=== PATIENT | female | born 1940 | race Caucasian/White ===

== ENCOUNTER 2017-06-21 14:57 | Inpatient (IN) | payer OTHER, MEDICARE ==
[~2017-06-21] VITALS: Ht 160 cm; Wt 87.7 kg
[~2017-06-21 14:57] MED LIST: ASPCH81X PO; CARV25TA2 PO; CHOL1000 PO; FRS/40 PO; GLIM2TAB2 PO; LEVO50TA60 PO; LISI10TA PO; MCRK20 PO; METF-384 PO; METH2.5T PO; MULT-506 PO; NATE60TA PO; NTRGSL/4 UT; OXGN; PRAV40TA2 PO; SITA100T3 PO; TERA5CAP PO; ZNTT/150 PO
--- NOTE | 2017-06-21 15:49 | EMERGENCY ROOM VISIT NOTE ---
History Report prepared by Zurdo: Sabrina Lal Under the Supervision of: Dr. Freya Lopez D.O. First contact with patient: 15:30 Chief Complaint: CARDIAC ASSESSMENT Stated Complaint: NARROWING HEART VALVE, WEAKNESS, SOB Nursing Triage Summary: Pt c/o SOB and "after I can get my breath my upper body just don't feel right and I do know I have a narrowing of a vein or valve in the heart" Pt denies chest pain. Symptoms began approx 1 hour ago. History of Present Illness The patient is a 76 year old female who presents to the Emergency Room with complaints of shortness of breath beginning 1 month ago. She reports that she has also had weakness and fatigue for 1 month. She states that exertion exacerbates her pain. States she feels better at rest. Today she reports that after going to the [employer] she was out of breath by the time she got home, and then broke out in a cold sweat. She states she tried to rest, but the symptoms persisted which was unusual. She also reports being nauseous and having a fleeting headache, and that she felt tingly from her waist up. The patient reports that she had her aortic valve replaced and that she has a narrowing in her aorta. She denies a history of heart attacks and asthmatic problems, but does state that she was a smoker. The patient reports that there was calcium in her lungs that was biopsied and is benign. The patient takes baby aspirin, and denies recent changes in medications. Pt denies change in vision, chest pain, vomiting, diarrhea, pain with urination, and melena. The patient's geophysical support specialist is Dr. Díaz. Source of History: patient Onset: 1 month ago Position: other (global) Quality: other (shortness of breath ) Modifying Factors (Worsening): exertion Associated Symptoms: + headache, + nausea, No vomiting, No melena, No urinary symptoms Note: additional symptom: tingly from waist up Review of Systems See HPI for pertinent positives & negatives. A total of 10 systems reviewed and were otherwise negative. Past Medical & Surgical Medical Problems: (1) Atrial fibrillation (2) Benign hypertension (3) CHF (4) Coronary artery disease (5) Diabetes mellitus (6) Hyperlipidemia (7) Hypothyroidism (8) Rheumatoid arthritis (9) Unstable angina Surgical Problems: (1) Cardiac catheterization (2) History of cholecystectomy (3) Replacement of aortic valve (4) Replacement of total knee joint (5) Total replacement of hip Family History Cancer Diabetes mellitus Heart disease Social History Smoking Status: Former Smoker Alcohol Use: none Drug Use: none Marital Status: single Housing Status: lives alone Occupation Status: employed Current/Historical Medications Scheduled Aspirin (Aspirin Ec), 81 MG PO DAILY Carvedilol (Carvedilol), 25 MG PO BID Cholecalciferol (Vitamin D3), 1,000 INTER.UNIT PO DAILY Folic Acid (Folic Acid), 1 MG PO DAILY Furosemide (Furosemide), 40 MG PO QAM Glimepiride (Glimepiride), 2 MG PO QPM Glimepiride (Glimepiride), 4 MG PO QAM Levothyroxine Sodium (Levothyroxine Sodium), 50 MCG PO QAM Lisinopril (Lisinopril), 10 MG PO QAM Metformin HCl (Metformin HCl), 850 MG PO BID Methotrexate (Methotrexate), 15 MG PO WK Multivitamin (Multivitamin), 1 TAB PO DAILY Nateglinide (Starlix), 120 MG PO QAM Nateglinide (Starlix), 60 MG PO QPM Potassium Chloride (Potassium Chloride Er), 10 MEQ PO DAILY Pravastatin Sodium (Pravastatin Sodium), 40 MG PO HS Ranitidine HCl (Ranitidine HCl), 150 MG PO BID Sitagliptin (Januvia), 100 MG PO QAM Terazosin (Hytrin), 5 MG PO HS Scheduled PRN Nitroglycerin (Nitrostat), 0.4 MG UT UD PRN for Chest Pain Allergies Coded Allergies: Codeine (Verified Allergy, Severe, CHEST PAIN, SOB- HAD INTRASPINAL MORPHINE [id number] ADMISSIO, 11/18/15) Chlorhexidine (Verified Allergy, Unknown, unk, 11/18/15) Physical Exam Vital Signs Date Time Temp Pulse Resp B/P (MAP) Pulse Ox O2 Delivery O2 Flow Rate FiO2 06/21/17 17:45 87 23 94 06/21/17 17:40 92 22 96 06/21/17 17:40 71 06/21/17 17:32 162/80 06/21/17 17:10 86 21 93 06/21/17 17:06 121/73 06/21/17 16:40 89 30 06/21/17 16:05 70 20 94 06/21/17 16:00 133/72 06/21/17 15:57 87 22 95 06/21/17 15:33 82 20 120/69 95 Room Air 06/21/17 15:30 120/69 06/21/17 15:30 83 06/21/17 15:28 128/76 06/21/17 15:03 96 Room Air 06/21/17 15:00 36.8 92 20 137/79 96 Room Air Physical Exam GENERAL: alert, well appearing, well nourished, no distress, non-toxic EYE EXAM: normal conjunctiva, PERRL and EOM's grossly intact OROPHARYNX: no exudate, no erythema, lips, buccal mucosa, and tongue normal and mucous membranes are moist NECK: supple, no nuchal rigidity, no adenopathy, non-tender LUNGS: Normal chest wall mechanics. Decreased breath sounds bilaterally. No wheezes, rhonchi, or rales. HEART: no murmurs, S1 normal and S2 normal ABDOMEN: abdomen soft, non-tender, normo-active bowel sounds, no masses, no rebound or guarding. BACK: Back is symmetrical on inspection and there is no deformity, no midline tenderness, no CVA tenderness. SKIN: no rashes and no bruising UPPER EXTREMITIES: upper extremities are grossly normal. LOWER EXTREMITIES: No pitting edema. NEURO EXAM: Normal sensorium, cranial nerves II-XII [grossly] intact, normal speech, no [gross] weakness of arms, no [gross] weakness of legs. [No drift. Finger to nose intact. Gross sensation intact.] Medical Decision & Procedures ER Provider Diagnostic Interpretation: Radiology results have been interpreted by the radiologist and reviewed by me. CHEST ONE VIEW PORTABLE CLINICAL HISTORY: Shortness of breath. Chest pain. COMPARISON STUDY: Chest radiograph November 18, 2015. FINDINGS: There is no pneumothorax or pleural effusion. Study is mildly compromised by suboptimal penetration. There is pulmonary vascular congestion with possible mild pulmonary edema. Moderate cardiomegaly is noted. A 4.2 cm right lower lobe mass is unchanged from earlier studies. Additional lower lobe nodules are unchanged. These were shown to represent partially calcified nodules and masses on CT of August 05, 2013. Prosthetic aortic valve is noted. IMPRESSION: 1. Pulmonary vascular congestion with suspected mild edema. 2. Moderate cardiomegaly. 3. No change in bilateral lower lung masses and nodules from study of October 02, 2010. These are likely benign. Electronically signed by: Ruben Holt M.D. 06/21/2017 4:06 PM Dictated Date/Time: 06/21/2017 4:03 PM Laboratory Results Test 06/21/17 15:24 Immature Granulocyte % (Auto) 0.4 % White Blood Count 8.20 K/uL (4.8-10.8) Red Blood Count 4.11 M/uL (4.2-5.4) Hemoglobin 11.9 g/dL (12.0-16.0) Hematocrit 35.4 % (37-47) Mean Corpuscular Volume 86.1 fL (80-100) Mean Corpuscular Hemoglobin 29.0 pg (25-34) Mean Corpuscular Hemoglobin Concent 33.6 g/dl (32-36) Platelet Count 138 K/uL (130-400) Mean Platelet Volume 10.8 fL (7.4-10.4) Neutrophils (%) (Auto) 82.9 % Lymphocytes (%) (Auto) 10.4 % Monocytes (%) (Auto) 5.2 % Eosinophils (%) (Auto) 1.0 % Basophils (%) (Auto) 0.1 % Neutrophils # (Auto) 6.80 K/uL (1.4-6.5) Lymphocytes # (Auto) 0.85 K/uL (1.2-3.4) Monocytes # (Auto) 0.43 K/uL (0.11-0.59) Eosinophils # (Auto) 0.08 K/uL (0-0.5) Basophils # (Auto) 0.01 K/uL (0-0.2) Immature Granulocyte # (Auto) 0.03 K/uL (0.00-0.02) Prothrombin Time 10.4 SECONDS (9.0-12.0) Prothromb Time International Ratio 1.0 (0.9-1.1) Total Bilirubin 0.4 mg/dl (0.2-1) Aspartate Amino Transf (AST/SGOT) 20 U/L (15-37) Alanine Aminotransferase (ALT/SGPT) 31 U/L (12-78) Alkaline Phosphatase 81 U/L (45-117) Pro-B-Type Natriuretic Peptide 62058 pg/ml (0-900) Total Protein 7.2 gm/dl (6.4-8.2) Albumin 3.7 gm/dl (3.4-5.0) Globulin 3.5 gm/dl (2.5-4.0) Albumin/Globulin Ratio 1.1 (0.9-2) Laboratory results per my review. Test 06/21/17 15:24 Immature Granulocyte % (Auto) 0.4 % White Blood Count 8.20 K/uL (4.8-10.8) Red Blood Count 4.11 M/uL (4.2-5.4) Hemoglobin 11.9 g/dL (12.0-16.0) Hematocrit 35.4 % (37-47) Mean Corpuscular Volume 86.1 fL (80-100) Mean Corpuscular Hemoglobin 29.0 pg (25-34) Mean Corpuscular Hemoglobin Concent 33.6 g/dl (32-36) Platelet Count 138 K/uL (130-400) Mean Platelet Volume 10.8 fL (7.4-10.4) Neutrophils (%) (Auto) 82.9 % Lymphocytes (%) (Auto) 10.4 % Monocytes (%) (Auto) 5.2 % Eosinophils (%) (Auto) 1.0 % Basophils (%) (Auto) 0.1 % Neutrophils # (Auto) 6.80 K/uL (1.4-6.5) Lymphocytes # (Auto) 0.85 K/uL (1.2-3.4) Monocytes # (Auto) 0.43 K/uL (0.11-0.59) Eosinophils # (Auto) 0.08 K/uL (0-0.5) Basophils # (Auto) 0.01 K/uL (0-0.2) Immature Granulocyte # (Auto) 0.03 K/uL (0.00-0.02) Prothrombin Time 10.4 SECONDS (9.0-12.0) Prothromb Time International Ratio 1.0 (0.9-1.1) Total Bilirubin 0.4 mg/dl (0.2-1) Aspartate Amino Transf (AST/SGOT) 20 U/L (15-37) Alanine Aminotransferase (ALT/SGPT) 31 U/L (12-78) Alkaline Phosphatase 81 U/L (45-117) Pro-B-Type Natriuretic Peptide 53656 pg/ml (0-900) Total Protein 7.2 gm/dl (6.4-8.2) Albumin 3.7 gm/dl (3.4-5.0) Globulin 3.5 gm/dl (2.5-4.0) Albumin/Globulin Ratio 1.1 (0.9-2) Medications Administered Medications (Trade) Dose Ordered Sig/Taya Route Start Time Stop Time Status Last Admin Dose Admin Aspirin/Aluminum/ Magnesium/Ca Carb (Ascriptin Tab) 325 mg NOW STAT PO 06/21/17 16:43 06/21/17 16:44 DC 06/21/17 17:06 325 MG Heparin Sodium/ Dextrose 500 ml @ 24 mls/hr [id number] PRN IV 06/21/17 17:45 07/21/17 17:44 06/23/17 10:24 24 MLS/HR Heparin Sodium (Porcine) (Heparin Iv Bolus) 5,000 unit NOW ONCE IV 06/21/17 17:38 06/21/17 17:39 DC 06/21/17 17:41 5,000 UNIT ECG Indication: SOB/dyspnea Rate (beats per minute): 89 Rhythm: sinus rhythm Findings: ST depression (in lead I, aVL, V4, V5, V6), other (normal axis and intervals) ED Course 1534: The patient was evaluated in room B3B. A complete history and physical exam was performed. 1643: Ordered Ascriptin Tab 325 mg PO. 1700: I updated the patient. 1714: Ordered Heparin Sodium/Dextrose 1 ea. 1715: Upon reevaluation, the patient is resting. I discussed the findings and the treatment plan with the patient. She expresses agreement and understanding. I spoke with Sue Coates PA-C of the [facility]. She will be evaluated for further management. 1716: I discussed the patient's case with Dr. Stone, He states no additional orders at this time. 1717: Dr. Mei is seeing the patient at bedside. Medical Decision Differential diagnosis: Etiologies such as infections, reactive airway disease, pneumonia, pneumothorax , COPD, CHF, cardiac ischemia, pulmonary embolism, musculoskeletal, gastrointestinal, as well as others were entertained. Pt with concerning story for angina, now becoming unstable. No ST elevation, + troponin. Doubt related to infection or renal dysfunction, possibly related to CHF. Pt started on heparin given elevated trop and concerning story. BNP elevated, pulmonary edema noted on CXR, no overt SOB or hypoxia, no LE edema. No sx while at rest in the ER, VS stable throughout. Doubt dissection, tamponade, effusion, bacteremia/sepsis, perf, mesenteric ischemia, pneumothorax. Medication Reconcilliation Current Medication List: was personally reviewed by me Blood Pressure Screening Patient's blood pressure: Elevated blood pressure Blood pressure disposition: Elevated BP felt to be situational Consults Time Called: 1700 Consulting Physician: Sue Fuller Returned Call: 1715 I reviewed the patient's case with Sue Coates PA-C. She will evaluate the patient for further management. Additional Consults: Time Called: 1700 Consulted Physician: Dr. Stone-Cardiology Returned Call: 1715 Additional Comments: I discussed the patient's case with Dr. Gibson, He states no additional orders at this time. Impression Primary Impression: Non-ST elevation (NSTEMI) myocardial infarction Additional Impressions: Pulmonary edema Renal insufficiency Critical Care I have personally spent greater than 35 minutes of critical care time in the direct management of this patient. This includes bedside care, interpretation of diagnostic studies, and testing, discussion with consultants, patient, and family members, and other required patient management activities. This 35 minutes is in excess of all separately billable procedures. Scribe Attestation The scribe's documentation has been prepared under my direction and personally reviewed by me in its entirety. I confirm that the note above accurately reflects all work, treatment, procedures, and medical decision making performed by me. Departure Information Dispostion Being Evaluated By Hospitalist Juan Manuel Curry M.D. (PCP) Patient Instructions My [facility] Problem Qualifiers Additional Impressions: Pulmonary edema Chronicity: acute Qualified Codes: J81.0 - Acute pulmonary edema
[2017-06-21 16:05] LABS: PROTHROMBIN TIME (PATIENT) 10.4 SECONDS (9.0-12.0)
[2017-06-21] MEDS ORDERED: CRG25 PO (16:07)
[2017-06-21] MEDS ORDERED: FLV1 PO (16:07)
[2017-06-21] MEDS ORDERED: ASPI81TA28 PO (16:07)
[2017-06-21] MEDS ORDERED: LISI-461 PO (16:07)
[2017-06-21] MEDS ORDERED: LEVO50TA6 PO (16:07)
[2017-06-21] MEDS ORDERED: SITA1TAB27 PO (16:07)
[2017-06-21] MEDS ORDERED: RANI150T2 PO (16:07)
[2017-06-21] MEDS ORDERED: GLC850 PO (16:07)
[2017-06-21] MEDS ORDERED: AMR2 PO (16:07)
[2017-06-21] MEDS ORDERED: LSX40 PO (16:07)
[2017-06-21] MEDS ORDERED: POTA-74 PO (16:07)
[2017-06-21] MEDS ORDERED: NATE1TAB PO ×2 (16:07)
[2017-06-21] MEDS ORDERED: MTH25 PO (16:07)
--- NOTE | 2017-06-21 16:07 | DIAGNOSTIC IMAGING REPORT ---
CHEST ONE VIEW PORTABLE CLINICAL HISTORY: Shortness of breath. Chest pain. COMPARISON STUDY: Chest radiograph November 18, 2015. FINDINGS: There is no pneumothorax or pleural effusion. Study is mildly compromised by suboptimal penetration. There is pulmonary vascular congestion with possible mild pulmonary edema. Moderate cardiomegaly is noted. A 4.2 cm right lower lobe mass is unchanged from earlier studies. Additional lower lobe nodules are unchanged. These were shown to represent partially calcified nodules and masses on CT of August 05, 2013. Prosthetic aortic valve is noted. IMPRESSION: 1. Pulmonary vascular congestion with suspected mild edema. 2. Moderate cardiomegaly. 3. No change in bilateral lower lung masses and nodules from study of October 02, 2010. These are likely benign. Electronically signed by: Ruben Holt M.D. 06/21/2017 4:06 PM Dictated Date/Time: 06/21/2017 4:03 PM
[2017-06-21 16:09] LABS: BASO % 0.1 %; BASO ABS # 0.01 K/uL (0-0.2); COMPLETE YES; HEMATOCRIT 35.4 % (37-47); IG% 0.4 %; LYMPH % 10.4 %; LYMPH ABS # 0.85 K/uL (1.2-3.4); MEAN CELL VOLUME 86.1 fL (80-100); MEAN CORPUSCULAR HGB CONC 33.6 g/dl (32-36); MEAN PLATELET VOLUME 10.8 fL (7.4-10.4); MONO % 5.2 %; NEUT % 82.9 %; PLATELET COUNT 138 K/uL (130-400); RED BLOOD COUNT 4.11 M/uL (4.2-5.4)
[2017-06-21 16:14] LABS: BUN/CREATININE RATIO 20.4 (10-20); CALCIUM 9.2 mg/dl (8.5-10.1); CREATININE 1.3 mg/dl (0.60-1.20); MAGNESIUM 1.9 mg/dl (1.8-2.4); POTASSIUM 4.9 mmol/L (3.5-5.1)
[2017-06-21 16:32] LABS: ALB/GLOB RATIO 1.1 (0.9-2)
[2017-06-21] MEDS ORDERED: ASPIRIN/ALUM/MAGNES/CAL CARB 325 MG TAB PO STA (16:43)
[2017-06-21] MEDS ORDERED: HEPARIN 25000 UNIT/500 ML D5W ONE (17:27)
[2017-06-21] MEDS ORDERED: HEPARIN SOD 5000 UNIT/0.5 ML CARP ONE (17:27)
[2017-06-21] MEDS ORDERED: HEPARIN SOD (PORCINE) 1000 UNIT/ML 10 ML VIAL IV ONE (17:38)
[2017-06-21] MEDS: HEPARIN 25,000 UNIT/500ML D5W 500 ML IV PRN (17:42)
[2017-06-21] MEDS ORDERED: NSS + 20MEQ KCL 1000ML 1,000 ML IV SCH (17:44)
[2017-06-21] MEDS ORDERED: ONDANSETRON INJ 2 MG/ML 2 ML VIAL IV PRN (17:45)
[2017-06-21] MEDS ORDERED: NITROGLYCERIN 0.4 MG SL PER TAB CHARGE SL PRN (17:45)
[2017-06-21] MEDS ORDERED: ACETAMINOPHEN 325 MG TAB PO PRN (17:45)
[2017-06-21] MEDS ORDERED: NITROGLYCERIN 0.4 MG SL PER TAB CHARGE UT PRN (18:00)
[2017-06-21] MEDS ORDERED: GLUCOSE 10 TABS/TUBE PO PRN (18:45)
[2017-06-21] MEDS ORDERED: GLUCAGON FOR INJ 1 MG VIAL SQ PRN (18:45)
[2017-06-21] MEDS ORDERED: GLUCOSE 40% GEL 15 GM TUBE PO PRN (18:45)
[2017-06-21] MEDS ORDERED: DEXTROSE 50% 50 ML SYR IV PRN (18:45)
[2017-06-21] MEDS ORDERED: FUROSEMIDE INJ 60 MG in SYRINGE 0 ML IV STA (19:13)
--- NOTE | 2017-06-21 19:59 | HISTORY & PHYSICAL EXAMINATION ---
DATE OF ADMISSION: 06/21/2017 PRIMARY CARE PHYSICIAN: Dr. Sweet. CHIEF COMPLAINT: Shortness of breath on exertion for 1 month, more shortness of breath and sweating and feeling unwell since this afternoon. HISTORY OF PRESENT COMPLAINT: She is a 76-year-old female with significant past medical history including atrial fibrillation, type 2 diabetes, heart failure due to valvular heart disease, rheumatoid arthritis, status post TAVR, apparently complaining of shortness of breath on exertion for about 1 month. She went to [facility] today and has had some physical exertion. Following that, she started to have more shortness of breath with chest tightness and sweating and also feeling of fainting or very unwell. From that point, she went home, the condition did not improve, then she was brought into the Emergency Room for further evaluation. She denies to have any chest pain, but she complained to have chest tightness. She did not have any numbness or tingling involving the left upper extremity or jaw or neck. In the ER, she did receive nitro and she was feeling a bit better following administration of oxygen as well. She denies to have any recent fever, any chills or rigors. She does not have any abdominal pain, any nausea or vomiting. She does not have any problem with urine and/or bowel habit. She does not have any fever, any cough or any phlegm. She denies to have any headache, any blurred vision, any numbness or tingling in the extremities or any weakness involving any side of the body. In the Emergency Room, she was hemodynamically stable, her pain was to some extent relieved, the investigation including EKG did show ST depression >1mm involving I and aVL and also V4, V5 and V6 and her troponin was 0.1. From that point, she was started on IV heparin and she was admitted to telemetry unit for continuation of care. 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 PAST SURGICAL HISTORY: Significant for aortic valve replacement with a CABG with prosthetic valve, arthroplasty of the left knee; carpal tunnel surgery, both sides; partial hip replacement of the right side, cholecystectomy and transthoracic aortic valve replacement in 2013. FAMILY HISTORY: Mother had carcinoma of the ovary, father from a motor vehicle accident and sister has diabetes type 1. SOCIAL HISTORY: She is a . She lives alone. She quit smoking years ago. She does not drink any alcohol and she has been reasonably ambulant. ALLERGIES: ALLERGIC TO CHLORHEXIDINE AND CODEINE. MEDICATIONS: As an outpatient, she has been on furosemide 40 mg daily, metformin 850 mg twice daily, Januvia 100 mg p.o. q.a.m., Starlix 60 mg at night and Starlix 120 mg in the morning, aspirin 81 mg daily, carvedilol 25 mg twice daily, vitamin D3 1000 units daily, folic acid 1 mg daily, glimepiride 2 mg q.p.m. and 4 mg q.a.m., levothyroxine 50 mcg daily, lisinopril 10 mg daily, methotrexate 15 mg every Fridays, multivitamin 1 tablet daily, nitroglycerin 0.4 mg as directed, potassium 10 mEq daily, pravastatin 40 mg daily, ranitidine 150 mg twice daily and terazosin 5 mg at night. REVIEW OF SYSTEMS: All other systems reviewed are unremarkable except those mentioned in history of present complaint. PHYSICAL EXAMINATION: GENERAL: On examination in the Emergency Room, she was not having any acute pain or shortness of breath. VITAL SIGNS: Temperature 36.8, pulse was 70, blood pressure 133/72, saturation 94% on room air. HEENT: Unremarkable. NECK: Supple. No JVD, no bruit. CHEST: Decreased breath sounds at bases but no wheezing and/or crackles. HEART: S1, S2 regular, prosthetic valve sounds, questionable murmur 2/6 over precordium. ABDOMEN: Soft, benign, nontender, no organomegaly. Bowel sounds present. EXTREMITIES: Trace edema on the left. Otherwise, unremarkable. MUSCULOSKELETAL: Did not show any acute arthritis involving any joint. CENTRAL NERVOUS SYSTEM: She was alert, awake, oriented x3 and no focal sensory and/or motor deficit appreciated. LABORATORY DATA: Noted today - white count 8.20, H&H 11.9/35.4, platelet was 138. Sodium 141, potassium 4.9, chloride 107, carbon dioxide 27, BUN 27, creatinine 1.30, random glucose 182. Troponin 1.113. Liver function is unremarkable. ProBNP is pending. INR 1.0. IMAGING DATA: Chest x-ray: Pulmonary vascular congestion with suspected mild edema. Moderate cardiomegaly. No change in bilateral lower lung masses in review from the study of September 2010, they are likely benign. EKG was in sinus rhythm, rate of 89 per minute, normal axis with ST depression and T-wave inversion involving I, aVL and V4 through V6 and ST depression was more than 1 mm, new compared with EKG of October 2015. IMPRESSION AND PLAN: 1. Unstable angina. The patient was admitted with shortness of breath and sweating with electrocardiogram changes and elevation troponin. She will be admitted to telemetry unit. Serial cardiac enzymes. She was started with intravenous heparin. Other medications will be continued. She got aspirin as well. She seems to be free of pain at this time. 2. Diabetes type 2. She has been on multiple oral medications. We will hold metformin and Januvia and Starlix for now. Put her on sliding scale coverage while in the hospital. 3.History of atrial fibrillation and status post transcatheter aortic valve replacement.Has significant Aortic Stenosis.Heart rate seems to be regular rhythm at this time. Continue with her current beta radha that is carvedilol. No acute issue at this time. 4. History of systolic heart failure complicated by valvular heart disease. She has been on furosemide.CXR is suggestive of Mild CHF,will give 60mg furosemide IV now and continue 40mg from AM. 5. Hypertension. Blood pressure is well controlled at this time. 6. Hypothyroidism. Continue current medication. 7. Hypothyroidism. Continue replacement. 8. Gastrointestinal prophylaxis with proton pump inhibitor and ranitidine. 9. Deep vein thrombosis prophylaxis, will be put on heparin drip. 10. Code status: She will be a full code. In my clinical assessment, the beneficiary meets criteria as per CMS for 2-midnight stay in the hospital. RODRIGUEZ
[2017-06-21] MEDS: INSULIN ASPART 100 UNITS/ML 3 ML PEN SC SCH (21:00)
[2017-06-21] MEDS: GLIMEPIRIDE 2 MG TAB PO SCH (21:21)
[2017-06-21] MEDS: CARVEDILOL 25 MG TAB PO SCH (21:21)
[2017-06-21] MEDS: RANITIDINE HCL 150 MG TAB PO SCH (21:21)
[2017-06-21] MEDS: PRAVASTATIN SOD 40 MG TAB PO SCH (21:22)
[2017-06-21 22:28] VITALS: BP 124/56; PULSE 89; TEMP 36.4; O2SAT 95; Ht 160 cm; Wt 87.7 kg
[2017-06-21 23:39] VITALS: BP 105/69; PULSE 79; TEMP 36.8; O2SAT 94
[2017-06-22] VITALS (7 sets, daily range): BP systolic 92–120; BP diastolic 53–66; PULSE 65–88; TEMP 36.4–37; O2SAT 92–96
[2017-06-22 00:29] LABS: CKMB/CK RATIO 2.7 (0-3.0)
[2017-06-22 05:56] LABS: HEMATOCRIT 34.1 % (37-47); MEAN CELL VOLUME 87.4 fL (80-100); MEAN CORPUSCULAR HEMOGLOBIN 28.2 pg (25-34); MEAN CORPUSCULAR HGB CONC 32.3 g/dl (32-36); MEAN PLATELET VOLUME 10.3 fL (7.4-10.4); PLATELET COUNT 136 K/uL (130-400); WHITE BLOOD COUNT 6.83 K/uL (4.8-10.8)
[2017-06-22 06:22] LABS: PARTIAL THROMBOPLASTIN RATIO 1.9
[2017-06-22] MEDS: LEVOTHYROXINE 50 MCG TAB PO SCH (06:27)
[2017-06-22 06:50] LABS: BUN/CREATININE RATIO 24.7 (10-20); CALCIUM 8.6 mg/dl (8.5-10.1); CREATININE 1.2 mg/dl (0.60-1.20); MAGNESIUM 1.8 mg/dl (1.8-2.4); POTASSIUM 4.1 mmol/L (3.5-5.1)
[2017-06-22 06:54] LABS: CKMB/CK RATIO 2.7 (0-3.0)
[2017-06-22] MEDS: RANITIDINE HCL 150 MG TAB PO SCH ×2 (08:03→20:55)
[2017-06-22] MEDS: LISINOPRIL 10 MG TAB PO SCH (08:03)
[2017-06-22] MEDS: ASPIRIN 81 MG ECTAB PO SCH (08:03)
[2017-06-22] MEDS: CARVEDILOL 25 MG TAB PO SCH ×2 (08:03→20:56)
[2017-06-22] MEDS: MULTIVITAMIN TAB PO SCH (08:03)
[2017-06-22] MEDS: CHOLECALCIFEROL 1000 INTER.UNIT TAB PO SCH (08:03)
[2017-06-22] MEDS: FUROSEMIDE INJ 40 MG in SYRINGE 0 ML IV SCH (08:03)
[2017-06-22] MEDS: GLIMEPIRIDE 2 MG TAB PO SCH ×2 (08:03→20:55)
[2017-06-22] MEDS: INSULIN ASPART 100 UNITS/ML 3 ML PEN SC SCH ×4 (08:06→21:05)
[2017-06-22] MEDS ORDERED: NON-FORMULARY MEDICATION (Potassium Chloride (Potassium Chloride Er) 10 MEQ) PO SCH (09:00)
--- NOTE | 2017-06-22 09:37 | Clinical Documentation Query ---
CLINICAL DOCUMENTATION QUERY QUERY 1 OF 3 76 yo female with SOB, sweating, and feeling unwell. In your clinical opinion is this patient being managed for: ( ) NSTEMI ( + ) Other explanation of clinical findings (Please Explain) ( ) Unable to determine (Please Define) ( ) Need to Discuss ( ) Not Agree Angina Equivalent .Mild Troponin elevation is due to CHF The medical record reflects the following clinical findings, treatment, and risk factors. Clinical Indicators:Chest pain, SOB, diaphoresis, serial Troponins 0.113, 0.244, 0.304; ECG with ST depression Treatment:ASA, O2, serial cardiac enzymes, telemetry, pending cardiology consult, echo, heparin IV Risk Factors:Age, heart failure, HTN, Hx AFib, CAD, DM II QUERY 2 OF 3 In your clinical opinion is this patient being managed for: ( ) Acute on chronic systolic CHF ( + ) Acute on chronic diastolic CHF ( ) Acute on chronic systolic and diastolic CHF ( ) Other explanation of clinical findings (Please Explain) ( ) Unable to determine (Please Define) ( ) Need to Discuss ( ) Not Agree Complicated by Valvular heart disease The medical record reflects the following clinical findings, treatment, and risk factors. Clinical Indicators:H&P indicates mild CHF, review of old echo 2012 shows EF 65-70% Treatment:IV Lasix, telemetry, O2, I&O, daily weights, continued home medications of Lisinopril and Coreg Risk Factors:Age, valvular heart disease, HTN, CAD, DM, AFib QUERY 3 OF 3 In your clinical opinion is this patient being managed for: ( ) Acute kidney failure on CKD Stage II-III ( ) CKD Stage II - III (No NAZIA) ( ) Other explanation of clinical findings (Please Explain) ( ) Unable to determine (Please Define) ( +) Need to Discuss ( ) Not Agree Patient is not treated for acute kidney injury The medical record reflects the following clinical findings, treatment, and risk factors. Clinical Indicators:BUN 27/Creat 1.30; review of historical Creat/GFR shows Creat of 0.86 and GFR of 66.6 (Oct 2015) Treatment:Unable to administer IV fluids d/t CHF, PRP monitoring, treatment of co-morbid chronic conditions Risk Factors:Age, CHF, DM, HTN, CAD, AFib Please clarify and document your clinical opinion in the progress notes and discharge summary. Terms such as "probable", "suspected", "likely", "questionable", "possible", or "still to be ruled out" are acceptable. IF IN AGREEMENT, YOU MUST DOCUMENT ABOVE DIAGNOSTIC STATEMENT IN DAILY PROGRESS NOTES AND DISCHARGE SUMMARY. This document is not part of the patient's record. Thank You, Frieda Stanley RN [phone]
--- NOTE | 2017-06-22 10:47 | CARDIOLOGY CONSULTATION ---
DATE OF CONSULTATION: 06/22/2017 REFERRING PHYSICIAN: Dr. Rasheed Mei. REASON FOR CONSULTATION: Elevated troponin, history of aortic valve replacement, shortness of breath, and congestive heart failure. CHIEF COMPLAINT ON ADMISSION: Shortness of breath. HISTORY OF PRESENT ILLNESS: The patient is a 76-year-old complex patient with a history listed below. She presented to the Emergency Department with more than 4 weeks of progressive shortness of breath. On the day of admission, she had been walking through the [email or web address]. She went out for lunch and then noted progressive dyspnea with exertion. Reports that it took much longer for her dyspnea to resolve than usual with some associated chest tightness. Due this worsening of symptoms, she came to the Emergency Department. X-ray demonstrates pulmonary vascular congestion. Her ProBNP is markedly elevated with mildly elevated troponin I. Her EKG demonstrates left ventricular hypertrophy with secondary ST-T wave changes. The patient was treated with intravenous furosemide. Her dyspnea has improved overnight. Previously reported chest heaviness has resolved. Denies any symptoms at rest. She has had 2 cardiac catheterizations in the past, which demonstrated mild nonobstructive CAD. She has also undergone 2 aortic valve replacements. Initially 2008 with a Roscoe-You bioprosthesis followed by a TAVR procedure in 2013. Her most recent echocardiogram performed at [facility] in January 2017 demonstrated suspected severe aortic valve stenosis. Currently, the patient is resting comfortably. Intravenous heparin infusing. She received a dose of furosemide this a.m. Other outpatient cardiovascular medications have been continued. Her cardiac enzymes have trended upward slightly to 0.304. She denies any cough, fever, chills, or sick contacts. No recent rhinorrhea or cold-like symptoms. Offers no other complaints at this time. REVIEW OF SYSTEMS: The pertinent positives are noted above. Comprehensive 10-system review is otherwise negative. PAST MEDICAL HISTORY: 1. Aortic valve disease status post bioprosthetic AVR in 2007 followed by TAVR in 2013 and the most recent resting 2D transthoracic echo suggesting severe bioprosthetic valvular stenosis. 2. Mild CAD by most recent cardiac catheterization in 2012. 3. Acute decompensated heart failure secondary to diastolic dysfunction and valvular heart disease. 4. Preserved left ventricular systolic function. 5. Hypertensive heart disease. 6. Diabetes type 2. 7. Severe rheumatoid arthritis. 8. Carotid vascular disease. 9. Dyslipidemia. 10. Hypothyroidism. PAST SURGICAL HISTORY: 1. Cardiac catheterization in 2008 as well as 2013. 2. AVR with #19 Roscoe-You in 2009 as well as TAVR in 2014. 3. Knee replacement. FAMILY HISTORY: Negative for premature coronary artery disease, sudden cardiac or cerebrovascular accident. Mother of an ovarian cancer. SOCIAL HISTORY: Former tobacco abuse. Denies alcohol or illicit drug use. She lives alone. ALLERGIES: LISTED TO CODEINE AND CHLORHEXIDINE. CURRENT OUTPATIENT MEDICATIONS: Include: 1. Starlix 60 mg 2 tablets in the a.m. and 1 tablet in the evening. 2. Klor-Con 10 mEq daily. 3. Pravachol 40 mg daily. 4. Carvedilol 25 mg twice daily. 5. Zantac 150 mg twice daily. 6. Metformin 850 mg twice daily. 7. Methotrexate 2.5 mg 6 tablets once a week. 8. Folic acid 1 mg daily. 9. Lisinopril 10 mg daily. 10. Januvia 100 mg daily. 11. Synthroid 50 mcg daily. 12. Hytrin 5 mg at bedtime. 13. Lasix 40 mg daily. 14. Amaryl 2 mg 3 tablets daily in the morning. 15. Vitamin D daily. 16. Sublingual nitroglycerin as needed. 17. Aspirin 81 mg daily. 18. Reclast injection yearly. LABORATORY DATA: White blood cell count 6.83, hemoglobin is 11.0, and platelet count is 136. Sodium 143, potassium 4.1, chloride 108, CO2 is 28, BUN is 30, and creatinine is 1.20. APTT 48.4. ProBNP is 11,208. Chest x-ray on admission demonstrates pulmonary vascular congestion, moderate cardiomegaly, bilateral lower lung masses and nodules noted. Cannot exclude underlying infiltrate. PHYSICAL EXAMINATION: VITAL SIGNS: Temperature is 36.7 degrees centigrade, pulse is 76 beats per minute and regular, respiratory rate is 18 breaths per minute, blood pressure 120/60 and SaO2 is 92% on room air. GENERAL: NAD, awake, alert and oriented x3. HEENT: Her mucous membranes are moist. There is no scleral icterus. Conjunctivae are pink. NECK: Supple. There is no JVD in upright position. No carotid bruit appreciated. LUNGS: Demonstrate crackles at the bases bilaterally. No rhonchi or wheeze. HEART: Regular. There is a normal S1 and diminished S2. There is a 3/6 mid to late peaking systolic ejection murmur appreciated throughout the precordium; however, best at the right second intercostal space. ABDOMEN: Soft and nontender. There is no rebound or guarding. Normal bowel sounds. EXTREMITIES: Warm and dry. There is no clubbing, cyanosis, or edema. There are stasis changes noted in the pretibial region. Posterior tibial pulses are palpable. NEUROLOGIC: Demonstrates no focal motor deficit. FINAL IMPRESSION: 1. Acute decompensated heart failure secondary to underlying valvular heart disease, hypertensive heart disease, and diastolic dysfunction. 2. Aortic valve disease status post bioprosthetic AVR in 2009 as well as TAVR in 2014 with suspected severe bioprosthetic valvular stenosis. 3. History of normal coronary anatomy x2 catheterization was in the past. Minimal troponin elevation secondary to acute decompensated heart failure. I doubt plaque rupture event at this time. 4. History of paroxysmal atrial fibrillation post-aortic valve replacement in the past -- currently sinus rhythm, not chronically anticoagulated. No evidence of recurrent atrial fibrillation since admission. 5. Hypertension -- borderline controlled. 6. Severe rheumatoid arthritis. PLAN AND RECOMMENDATIONS: We will increase diuretic to 40 mg IV q. 12 hours. Trend cardiac enzymes. Continue aspirin and beta radha therapy as previously ordered. A complete resting 2D transthoracic echo with evaluation of LVOT and transaortic gradients will be performed to assess TAVR stenosis severity. May consider transesophageal echo during hospitalization. The patient markedly improved with medical therapy. Continue to follow closely during hospitalization. MTDD
[2017-06-22] MEDS: HEPARIN 25,000 UNIT/500ML D5W 500 ML IV PRN (13:16)
--- NOTE | 2017-06-22 14:46 | ECHOCARDIOGRAM REPORT ---
*NOTICE TO RECEIVING [employer] This information is strictly Confidential and protected under [place] law. [place] law prohibits you from making any further disclosure of this information unless further disclosure is expressly permitted by the written consent of the person to whom it pertains or is authorized by law. A general authorization for the release of medical or other information is not sufficient for this purpose. Hospital accepts no responsibility if the information is made available to any other person, INCLUDING THE PATIENT. Interpretation Summary * These addition images were interpreted and results documented on Echo report dated 06/22/17 at 0642 AM. Procedure Details * * Doppler Measurements and Calculations * Ao V2 max 346.1 cm/sec * Ao max PG 47.9 mmHg * Ao V2 mean 229.0 cm/sec * Ao mean PG 24.9 mmHg * Ao V2 VTI 83.1 cm * * * * *
--- NOTE | 2017-06-22 14:48 | Progress Note ---
Internal Med Progress Note Date of Service: Jun 22, 2017. Provider Documentation: SUBJECTIVE: The patient was seen and examined Feels a lot better today NO more SOB and or Chest tightness OBJECTIVE: Vital Signs-as noted below Exam: General-no distress at rest Eyes-normal ENT-normal Neck-supple Lungs-Decreased breath sound bilaterally No Crackles Heart-Regular,prosthetic heart Valve sound Abdomen-Benign Extremities-trace edema bilaterally Neuro-AAOx3 Lab data as noted below. ASSESSMENT & PLAN: Acute decompensated heart failure complicated by valvular heart disease. She has been on furosemide.CXR is suggestive of Mild CHF, Received 60 mg Lasix on Admission Will continue with 40mg BID as per cardiology Clinically a lot better Angina Equivalent Presented with SOB,Chest pressure Troponin minimally elevated Will trend 1 more time Has been on Heparin Aortic valve disease,S/P Bioprosthetic valve replacement in 2008 and followed by TAVR in 2013 Symptoms are contributing to valvular Heart disease Check ECHO Appreciate Cardiology input Diabetes type 2. She has been on multiple oral medications. We will hold metformin and Januvia and Starlix for now. Put her on sliding scale coverage while in the hospital. History of atrial fibrillation Not on any Anticoagulation Now in SR Hypertension. Blood pressure is well controlled at this time. Hypothyroidism. Continue current medication. Hypothyroidism. Continue replacement. Gastrointestinal prophylaxis with proton pump inhibitor and ranitidine. Deep vein thrombosis prophylaxis, will be put on heparin drip. Code status: She will be a full code. Vital Signs: Date Time Temp Pulse Resp B/P (MAP) Pulse Ox O2 Delivery O2 Flow Rate FiO2 06/22/17 12:00 Room Air 06/22/17 11:29 36.7 71 18 104/66 (79) 93 Room Air 06/22/17 08:00 Room Air 06/22/17 07:26 36.7 76 18 120/60 (80) 92 Room Air 06/22/17 04:02 36.9 88 20 115/61 (79) 96 Room Air 06/22/17 04:00 Room Air 06/22/17 00:00 Room Air 06/21/17 23:39 36.8 79 18 105/69 (81) 94 Room Air 06/21/17 22:28 36.4 89 18 124/56 95 Room Air 06/21/17 19:20 84 20 92 06/21/17 19:01 121/63 06/21/17 18:59 36.8 84 20 125/79 94 06/21/17 18:50 86 20 93 06/21/17 18:45 87 24 94 06/21/17 18:31 125/79 06/21/17 18:15 86 22 94 06/21/17 18:01 141/66 06/21/17 17:45 87 23 94 06/21/17 17:40 92 22 96 06/21/17 17:40 71 06/21/17 17:32 162/80 06/21/17 17:10 86 21 93 06/21/17 17:06 121/73 06/21/17 16:40 89 30 06/21/17 16:05 70 20 94 06/21/17 16:00 133/72 06/21/17 15:57 87 22 95 06/21/17 15:33 82 20 120/69 95 Room Air 06/21/17 15:30 120/69 06/21/17 15:30 83 06/21/17 15:28 128/76 06/21/17 15:03 96 Room Air 06/21/17 15:00 36.8 92 20 137/79 96 Room Air Lab Results: Results Past 24 Hours Test 06/21/17 15:24 06/21/17 20:08 06/21/17 23:45 06/22/17 05:45 Range/Units White Blood Count 8.20 6.83 4.8-10.8 K/uL Red Blood Count 4.11 3.90 4.2-5.4 M/uL Hemoglobin 11.9 11.0 12.0-16.0 g/dL Hematocrit 35.4 34.1 37-47 % Mean Corpuscular Volume 86.1 87.4 80-100 fL Mean Corpuscular Hemoglobin 29.0 28.2 25-34 pg Mean Corpuscular Hemoglobin Concent 33.6 32.3 32-36 g/dl Platelet Count 138 136 130-400 K/uL Mean Platelet Volume 10.8 10.3 7.4-10.4 fL Neutrophils (%) (Auto) 82.9 % Lymphocytes (%) (Auto) 10.4 % Monocytes (%) (Auto) 5.2 % Eosinophils (%) (Auto) 1.0 % Basophils (%) (Auto) 0.1 % Neutrophils # (Auto) 6.80 1.4-6.5 K/uL Lymphocytes # (Auto) 0.85 1.2-3.4 K/uL Monocytes # (Auto) 0.43 0.11-0.59 K/uL Eosinophils # (Auto) 0.08 0-0.5 K/uL Basophils # (Auto) 0.01 0-0.2 K/uL RDW Standard Deviation 50.0 51.5 36.4-46.3 fL RDW Coefficient of Variation 16.2 16.4 11.5-14.5 % Immature Granulocyte % (Auto) 0.4 % Immature Granulocyte # (Auto) 0.03 0.00-0.02 K/uL Prothrombin Time 10.4 9.0-12.0 SECONDS Prothromb Time International Ratio 1.0 0.9-1.1 Sodium Level 141 143 136-145 mmol/L Potassium Level 4.9 4.1 3.5-5.1 mmol/L Chloride Level 107 108 98-107 mmol/L Carbon Dioxide Level 27 28 21-32 mmol/L Anion Gap 7.0 7.0 3-11 mmol/L Blood Urea Nitrogen 27 30 7-18 mg/dl Creatinine 1.30 1.20 0.60-1.20 mg/dl Est Creatinine Clear Calc Drug Dose 39.0 42.2 ml/min Estimated GFR () 46.5 51.2 Estimated GFR (Non- 40.1 44.2 BUN/Creatinine Ratio 20.4 24.7 10-20 Random Glucose 182 91 70-99 mg/dl Calcium Level 9.2 8.6 8.5-10.1 mg/dl Magnesium Level 1.9 1.8 1.8-2.4 mg/dl Total Bilirubin 0.4 0.2-1 mg/dl Aspartate Amino Transf (AST/SGOT) 20 15-37 U/L Alanine Aminotransferase (ALT/SGPT) 31 12-78 U/L Alkaline Phosphatase 81 45-117 U/L Troponin I 0.113 0.244 0.304 0-0.045 ng/ml Pro-B-Type Natriuretic Peptide 92165 0-900 pg/ml Total Protein 7.2 6.4-8.2 gm/dl Albumin 3.7 3.4-5.0 gm/dl Globulin 3.5 2.5-4.0 gm/dl Albumin/Globulin Ratio 1.1 0.9-2 Bedside Glucose 90 70-90 mg/dl Activated Partial Thromboplast Time 52.0 48.4 21.0-31.0 SECONDS Partial Thromboplastin Ratio 2.0 1.9 Total Creatine Kinase 55 56 26-192 U/L Creatine Kinase MB 1.5 1.5 0.5-3.6 ng/ml Creatine Kinase MB Ratio 2.7 2.7 0-3.0 Test 06/22/17 07:34 06/22/17 11:24 06/22/17 11:45 Range/Units Bedside Glucose 108 159 70-90 mg/dl Total Creatine Kinase 66 26-192 U/L Creatine Kinase MB 2.0 0.5-3.6 ng/ml Creatine Kinase MB Ratio 3.0 0-3.0 Troponin I 0.244 0-0.045 ng/ml
--- NOTE | 2017-06-22 15:11 | ECHOCARDIOGRAM REPORT ---
*NOTICE TO RECEIVING [employer] AGENCY This information is strictly Confidential and protected under [place] law. [place] law prohibits you from making any further disclosure of this information unless further disclosure is expressly permitted by the written consent of the person to whom it pertains or is authorized by law. A general authorization for the release of medical or other information is not sufficient for this purpose. Hospital accepts no responsibility if the information is made available to any other person, INCLUDING THE PATIENT. Interpretation Summary * Name: PENNY JUAREZ Study Date: 06/22/2017 06:42 AM BP: 115/61 mmHg * HR: 81 * : 1940 (M/d/yyyy) Gender: Female Height: 63 in * Age: 76 yrs Ethnicity: [place] Weight: 190 lb * Ordering Physician: Rasheed Mei M.D. * Performed By: Rukhsana Chan RCS * * Reason For Study: Chest pain * BSA: 1.9 m2 * The study was technically limited. * Compared to prior study, changes are noted. * -- Conclusions -- * There is severe concentric left ventricular hypertrophy. * Ejection Fraction = 55-60%. * Septal motion is consistent with post-operative state. * There is a bioprosthetic aortic valve. * The aortic bioprostesis is not well visualized. * Systolic gradients suggest moderate to severe stenosis. * There is trace bioprosthetic valve insufficiency. * There is severe mitral annular calcification. * There is mild mitral stenosis. * There is mild mitral regurgitation. * There is mild tricuspid regurgitation. * The estimated systolic PAP is 42mmHg. Procedure Details * Left Ventricle There is severe concentric left ventricular hypertrophy. Ejection Fraction = 55-60%. Septal motion is consistent with post-operative state. * Right Ventricle The right ventricle is grossly normal size. The right ventricular systolic function is normal. * Atria The left atrium is moderately dilated. Right atrial size is normal. * Mitral Valve There is severe mitral annular calcification. The mitral valve leaflets appear thickened, but open well. There is mild mitral stenosis. There is mild mitral regurgitation. * Tricuspid Valve The tricuspid valve is not well visualized, but is grossly normal. There is no tricuspid stenosis. There is mild tricuspid regurgitation. The estimated systolic PAP is 42mmHg. * Aortic Valve There is a bioprosthetic aortic valve. The aortic bioprostesis is not well visualized. Systolic gradients suggest moderate to severe stenosis. There is trace bioprosthetic valve insufficiency. * Pulmonic Valve The pulmonary valve is not well seen, but the Doppler examination is normal without significant regurgitation or stenosis. * Great Vessels The aortic root is normal size. * Pericardium/Pleural There is no pericardial effusion. * Left Ventricular Diastolic Function Diastolic dysfunction, Grade II (pseudonormalization pattern). * * MMode 2D Measurements and Calculations * IVSd 1.7 cm * * LVIDd 3.9 cm * LVIDs 2.7 cm * LVPWd 1.6 cm * * IVS/LVPW 1.1 * FS 31.2 % * EDV(Teich) 64.0 ml * ESV(Teich) 25.9 ml * EF(Teich) 59.6 % * * EDV(cubed) 57.2 ml * ESV(cubed) 18.7 ml * EF(cubed) 67.4 % * * LV mass(C)d 253.2 grams * LV mass(C)dI 133.8 grams/m\S\2 * * SV(Teich) 38.2 ml * SI(Teich) 20.2 ml/m\S\2 * SV(cubed) 38.5 ml * SI(cubed) 20.4 ml/m\S\2 * * Ao root diam 2.9 cm * Ao root area 6.6 cm\S\2 * * LVOT diam 2.1 cm * LVOT area 3.4 cm\S\2 * * LVAd ap4 31.7 cm\S\2 * LVLd ap4 8.0 cm * EDV(MOD-sp4) 104.0 ml * EDV(sp4-el) 107.2 ml * LVAs ap4 21.0 cm\S\2 * LVLs ap4 7.5 cm * ESV(MOD-sp4) 49.4 ml * ESV(sp4-el) 49.7 ml * EF(MOD-sp4) 52.5 % * EF(sp4-el) 53.7 % * * LVAd ap2 31.6 cm\S\2 * LVLd ap2 8.0 cm * EDV(MOD-sp2) 103.8 ml * EDV(sp2-el) 105.5 ml * LVAs ap2 20.2 cm\S\2 * LVLs ap2 7.2 cm * ESV(MOD-sp2) 49.8 ml * ESV(sp2-el) 47.6 ml * EF(MOD-sp2) 52.0 % * EF(sp2-el) 54.9 % * * LVLd %diff 1.0 % * EDV(MOD-bp) 104.0 ml * LVLs %diff -3.97 % * ESV(MOD-bp) 50.4 ml * EF(MOD-bp) 51.5 % * * SV(MOD-sp4) 54.6 ml * SI(MOD-sp4) 28.9 ml/m\S\2 * * SV(MOD-sp2) 54.0 ml * SI(MOD-sp2) 28.5 ml/m\S\2 * * SV(MOD-bp) 53.6 ml * SI(MOD-bp) 28.3 ml/m\S\2 * * SV(sp4-el) 57.6 ml * SI(sp4-el) 30.4 ml/m\S\2 * * SV(sp2-el) 57.9 ml * SI(sp2-el) 30.6 ml/m\S\2 * * * Doppler Measurements and Calculations * MV E max rebecca 163.7 cm/sec * MV A max rebecca 158.3 cm/sec * * MV E/A 1.0 * * MV V2 max 175.2 cm/sec * MV max PG 12.3 mmHg * MV V2 mean 118.0 cm/sec * MV mean PG 6.2 mmHg * MV V2 VTI 48.7 cm * MVA(VTI) 1.2 cm\S\2 * * MV P1/2t max rebecca 205.8 cm/sec * MV P1/2t 114.7 msec * MVA(P1/2t) 1.9 cm\S\2 * MV dec slope 525.3 cm/sec\S\2 * MV dec time 0.22 sec * * Ao V2 max 347.0 cm/sec * Ao V2 VTI 80.5 cm * AARON(I,A) 0.72 cm\S\2 * AARON(I,D) 0.72 cm\S\2 * AARON(V,A) 0.51 cm\S\2 * AARON(V,D) 0.51 cm\S\2 * * LV V1 max PG 1.1 mmHg * LV V1 mean PG 0.71 mmHg * * LV V1 max 51.4 cm/sec * LV V1 mean 40.1 cm/sec * LV V1 VTI 16.8 cm * * SV(Ao) 530.9 ml * SI(Ao) 280.6 ml/m\S\2 * SV(LVOT) 58.0 ml * SI(LVOT) 30.6 ml/m\S\2 * * TR max rebecca 312.2 cm/sec * * * * *
[2017-06-22 18:31] LABS: CKMB/CK RATIO 2.6 (0-3.0)
[2017-06-22] MEDS: PRAVASTATIN SOD 40 MG TAB PO SCH (20:55)
[2017-06-23] VITALS (9 sets, daily range): BP systolic 91–126; BP diastolic 50–68; PULSE 61–80; TEMP 36.5–37.1; O2SAT 93–95
[2017-06-23] MEDS: LEVOTHYROXINE 50 MCG TAB PO SCH (05:33)
[2017-06-23 05:50] LABS: HEMATOCRIT 31.8 % (37-47); MEAN CELL VOLUME 85.7 fL (80-100); MEAN CORPUSCULAR HEMOGLOBIN 28.8 pg (25-34); MEAN CORPUSCULAR HGB CONC 33.6 g/dl (32-36); MEAN PLATELET VOLUME 10.5 fL (7.4-10.4); PLATELET COUNT 115 K/uL (130-400); RED BLOOD COUNT 3.71 M/uL (4.2-5.4); WHITE BLOOD COUNT 6.19 K/uL (4.8-10.8)
[2017-06-23 06:04] LABS: PARTIAL THROMBOPLASTIN RATIO 1.9
[2017-06-23] MEDS: CHOLECALCIFEROL 1000 INTER.UNIT TAB PO SCH (07:50)
[2017-06-23] MEDS: GLIMEPIRIDE 2 MG TAB PO SCH ×2 (07:50→20:48)
[2017-06-23] MEDS: ASPIRIN 81 MG ECTAB PO SCH (07:50)
[2017-06-23] MEDS: FUROSEMIDE INJ 40 MG in SYRINGE 0 ML IV SCH (07:50)
[2017-06-23] MEDS: RANITIDINE HCL 150 MG TAB PO SCH ×2 (07:50→20:46)
[2017-06-23] MEDS: MULTIVITAMIN TAB PO SCH (07:50)
[2017-06-23] MEDS: LISINOPRIL 10 MG TAB PO SCH (07:51)
[2017-06-23] MEDS: CARVEDILOL 25 MG TAB PO SCH ×2 (08:51→20:47)
[2017-06-23] MEDS: INSULIN ASPART 100 UNITS/ML 3 ML PEN SC SCH ×4 (08:54→20:49)
[2017-06-23] MEDS: HEPARIN 25,000 UNIT/500ML D5W 500 ML IV PRN (10:24)
--- NOTE | 2017-06-23 13:37 | Progress Note ---
Internal Med Progress Note Date of Service: Jun 23, 2017. Provider Documentation: SUBJECTIVE: The patient was seen and examined NO more SOB and or Chest tightness Feeling much better Some SOB on ambulation OBJECTIVE: Vital Signs-as noted below Exam: General-no distress at rest Eyes-normal ENT-normal Neck-supple Lungs-Decreased breath sound bilaterally No Crackles Heart-Regular,prosthetic heart Valve sound Abdomen-Benign Extremities-trace edema bilaterally Neuro-AAOx3 Lab data as noted below. ASSESSMENT & PLAN: Acute decompensated heart failure complicated by valvular heart disease. She has been on furosemide.CXR is suggestive of Mild CHF, Received 60 mg Lasix on Admission Will continue with 40mg BID as per cardiology Clinically a lot better Continue Lasix Angina Equivalent Presented with SOB,Chest pressure Troponin minimally elevated-doubt ACS Will trend 1 more time-highest level of Troponin 0.3,trending down Has been on Heparin Aortic valve disease,S/P Bioprosthetic valve replacement in 2008 and followed by TAVR in 2013 Symptoms are contributing to valvular Heart disease Check ECHO:: * There is severe concentric left ventricular hypertrophy. * Ejection Fraction = 55-60%. * Septal motion is consistent with post-operative state. * There is a bioprosthetic aortic valve. * The aortic bioprostesis is not well visualized. * Systolic gradients suggest moderate to severe stenosis. * There is trace bioprosthetic valve insufficiency. * There is severe mitral annular calcification. * There is mild mitral stenosis. * There is mild mitral regurgitation. * There is mild tricuspid regurgitation. * The estimated systolic PAP is 42mmHg. Appreciate Cardiology input Diabetes type 2. She has been on multiple oral medications. We will hold metformin and Januvia and Starlix for now. Put her on sliding scale coverage while in the hospital. Blood sugar remains stable History of atrial fibrillation Not on any Anticoagulation Now in SR Hypertension. Blood pressure is well controlled at this time. Hyperlipidemia Continue current medication. Hypothyroidism. Continue replacement. Gastrointestinal prophylaxis with proton pump inhibitor and ranitidine. Deep vein thrombosis prophylaxis, will be put on heparin drip. Code status: She will be a full code. Vital Signs: Date Time Temp Pulse Resp B/P (MAP) Pulse Ox O2 Delivery O2 Flow Rate FiO2 06/23/17 11:27 37.1 70 18 116/68 (84) 95 Room Air 06/23/17 08:50 78 106/50 (68) 06/23/17 08:00 Room Air 06/23/17 07:08 36.6 73 18 97/59 (72) 93 Room Air 06/23/17 05:02 36.5 61 18 91/58 (69) 94 Room Air 06/23/17 04:00 Room Air 06/23/17 00:00 Room Air 06/22/17 23:33 36.4 76 20 92/60 (71) 94 Room Air 06/22/17 21:05 76 110/66 (81) 06/22/17 20:00 Room Air 06/22/17 18:50 37.0 83 18 95/53 (67) 93 Room Air 06/22/17 16:00 Room Air 06/22/17 14:41 36.9 65 18 92/57 (69) 96 Room Air Lab Results: Results Past 24 Hours Test 06/22/17 16:17 06/22/17 17:49 06/22/17 19:41 06/23/17 05:34 Range/Units Bedside Glucose 126 181 70-90 mg/dl Total Creatine Kinase 65 26-192 U/L Creatine Kinase MB 1.7 0.5-3.6 ng/ml Creatine Kinase MB Ratio 2.6 0-3.0 Troponin I 0.239 0-0.045 ng/ml White Blood Count 6.19 4.8-10.8 K/uL Red Blood Count 3.71 4.2-5.4 M/uL Hemoglobin 10.7 12.0-16.0 g/dL Hematocrit 31.8 37-47 % Mean Corpuscular Volume 85.7 80-100 fL Mean Corpuscular Hemoglobin 28.8 25-34 pg Mean Corpuscular Hemoglobin Concent 33.6 32-36 g/dl RDW Standard Deviation 50.5 36.4-46.3 fL RDW Coefficient of Variation 16.4 11.5-14.5 % Platelet Count 115 130-400 K/uL Mean Platelet Volume 10.5 7.4-10.4 fL Activated Partial Thromboplast Time 50.2 21.0-31.0 SECONDS Partial Thromboplastin Ratio 1.9 Test 06/23/17 07:33 06/23/17 11:40 06/23/17 12:51 Range/Units Bedside Glucose 189 144 70-90 mg/dl
[2017-06-23 14:59] LABS: BUN/CREATININE RATIO 27.6 (10-20); CALCIUM 8.6 mg/dl (8.5-10.1); CREATININE 1.3 mg/dl (0.60-1.20); POTASSIUM 4.5 mmol/L (3.5-5.1)
--- NOTE | 2017-06-23 15:02 | CARDIOLOGY PROGRESS NOTE ---
DATE: 06/23/2017 DATE: 06/23/2017 The patient seen and examined. Chart, medications, telemetry reviewed. SUBJECTIVE: The patient was seen this morning and then once again this afternoon. Notes clinical status is once again improved, feels less dyspneic. Continues to have good urination and fluid out. Notes no chest pains. Notes no tachypalpitations. Was breathless this morning when ambulatory to the bathroom. OBJECTIVE: VITAL SIGNS: Heart rate is 70. Blood pressure is 116/68. NECK: Thick. There is no distinct jugular venous distention. LUNGS: Reveal diminished breath sounds diffusely. CARDIOVASCULAR EXAMINATION: Regular with a harsh grade 3/6 systolic murmur. There is no diastolic murmur. ABDOMEN: Soft, nontender. EXTREMITIES: Without cyanosis or clubbing. There is trivial pedal edema only. LABORATORY DATA: BMP from today is pending on my order. White cell count this morning 6.1, hemoglobin 10.7. Troponins are elevated, but generally flat. EKG is pending from today. Telemetry reveals no arrhythmias. IMPRESSION: Complex 76-year-old female with underlying history of known valvular disease with prior aortic valve replacement of initial Roscoe-You valve structure in 2008 with a small 19 mm Roscoe-You valve followed by TAVR with valve replacement in 2013, presents now with decompensated acute congestive heart failure. Findings suggest progressive heart failure secondary to valvular disease rather than acute coronary syndrome. PLAN: Will continue IV heparin another 24 hours unless issues arise. Will follow hemoglobins closely. EKG ordered for a.m. The patient will be kept n.p.o. to allow potential transesophageal echocardiographic if necessary. Hopefully, patient will respond to gentle diuresis clinically. Discussed difficult options for management of underlying prosthesis in prosthesis stenosis.
[2017-06-23] MEDS: PRAVASTATIN SOD 40 MG TAB PO SCH (20:46)
[2017-06-24] VITALS (16 sets, daily range): BP systolic 91–162; BP diastolic 37–81; PULSE 62–76; TEMP 36.5–36.8; O2SAT 93–99
[2017-06-24] MEDS: LEVOTHYROXINE 50 MCG TAB PO SCH (05:43)
[2017-06-24] MEDS: HEPARIN 25,000 UNIT/500ML D5W 500 ML IV PRN ×2 (07:54→10:03)
[2017-06-24] MEDS: INSULIN ASPART 100 UNITS/ML 3 ML PEN SC SCH ×4 (07:59→21:02)
[2017-06-24] MEDS: GLIMEPIRIDE 2 MG TAB PO SCH ×2 (08:00→21:00)
[2017-06-24] MEDS: ASPIRIN 81 MG ECTAB PO SCH (08:00)
[2017-06-24] MEDS: RANITIDINE HCL 150 MG TAB PO SCH ×2 (08:01→21:00)
[2017-06-24] MEDS: MULTIVITAMIN TAB PO SCH (08:01)
[2017-06-24] MEDS: LISINOPRIL 10 MG TAB PO SCH (08:02)
[2017-06-24] MEDS: CHOLECALCIFEROL 1000 INTER.UNIT TAB PO SCH (08:02)
[2017-06-24] MEDS: CARVEDILOL 25 MG TAB PO SCH (08:04)
[2017-06-24 08:45] LABS: PARTIAL THROMBOPLASTIN RATIO 1.6
[2017-06-24] MEDS ORDERED: METHOTREXATE 2.5 MG TAB PO SCH (09:00)
[2017-06-24] MEDS ORDERED: HEPARIN IV BOLUS 3,000 UNIT in SYRINGE 0 ML IV ONE (10:00)
[2017-06-24] MEDS ORDERED: MEPERIDINE HCL 50 MG/ML CARP ONE (10:31)
[2017-06-24] MEDS ORDERED: MIDAZOLAM HCL 1 MG/ML 2ML VIAL ONE ×2 (10:31→10:32)
[2017-06-24] MEDS ORDERED: BENZOCAIN/TETRACA/BUTAM SPRAY 200 APPLN/20 GM SPRY ONE (10:31)
[2017-06-24] MEDS ORDERED: CANNULA ONE ×2 (10:32)
--- NOTE | 2017-06-24 12:24 | CARDIOLOGY PROGRESS NOTE ---
DATE: 06/24/2017 DATE: 06/24/2017 The patient is seen and examined. Chart, medications, telemetry reviewed. SUBJECTIVE: The patient feels improved this morning. Has had diuresed since admission, though weight has had little change. Notes no chest pains. Notes no tachypalpitations. Notes no dizziness. Has had no bleeding difficulties on current anticoagulants. OBJECTIVE: VITAL SIGNS: Heart rate 74, blood pressures 112/68. NECK: Thick. There is no distinct jugular venous distention. There are no carotid bruits. LUNGS: Revealed clear air chanel. CARDIOVASCULAR: Regular with a harsh grade 2-3/6 systolic ejection murmur. ABDOMEN: Soft, obese. EXTREMITIES: Without cyanosis or clubbing. There is no peripheral edema. LABORATORY DATA: The patient anticoagulated with heparin. ADDITIONAL DATA: Transesophageal echocardiography preliminary review reveals low normal LV systolic function, EF 50-55%, some very small bioprosthetic valve within a prior bioprosthetic valve. There is trivial paravalvular insufficiency. Valve leaflets are thickened and restricted in mobility though peak velocities were not significantly elevated on transgastric views. Valve appears stenotic. RECOMMENDATIONS: The patent presenting with acute on chronic congestive heart failure in the setting of severe valvular disease with severe aortic stenosis, bioprosthetic. PLAN: Will continue IV anticoagulation for an additional 48 hours with consideration of switching to oral anticoagulation as a planned 3-month measure. Will reduce carvedilol dosing slightly. Continue oral furosemide at 60 mg per day and follow patient. Will recommend keeping the patient in the hospital at least another 48-72 hours as anticoagulation is administered, hopefully aiding in valve leaflet mobility. Will follow patient in the hospital.
[2017-06-24 13:34] LABS: HEMATOCRIT 32.2 % (37-47); MEAN CELL VOLUME 85.9 fL (80-100); MEAN CORPUSCULAR HEMOGLOBIN 28.3 pg (25-34); MEAN CORPUSCULAR HGB CONC 32.9 g/dl (32-36); MEAN PLATELET VOLUME 10.4 fL (7.4-10.4); PLATELET COUNT 118 K/uL (130-400); RED BLOOD COUNT 3.75 M/uL (4.2-5.4); WHITE BLOOD COUNT 5.43 K/uL (4.8-10.8)
[2017-06-24 13:54] LABS: BUN/CREATININE RATIO 33.2 (10-20); CALCIUM 8.7 mg/dl (8.5-10.1); POTASSIUM 4.2 mmol/L (3.5-5.1)
[2017-06-24 16:34] LABS: PARTIAL THROMBOPLASTIN RATIO 2.6
--- NOTE | 2017-06-24 17:44 | Progress Note ---
Internal Med Progress Note Date of Service: Jun 24, 2017. Provider Documentation: SUBJECTIVE: The patient was seen and examined NO more SOB and or Chest tightness Feeling much better Some SOB on ambulation Will need to stay in hospital for 48 to 72 hours more OBJECTIVE: Vital Signs-as noted below Exam: General-no distress at rest Eyes-normal ENT-normal Neck-supple Lungs-Decreased breath sound bilaterally No Crackles Heart-Regular,prosthetic heart Valve sound Abdomen-Benign Extremities-trace edema bilaterally Neuro-AAOx3 Lab data as noted below. ASSESSMENT & PLAN: Acute decompensated heart failure complicated by valvular heart disease. She has been on furosemide.CXR is suggestive of Mild CHF, Received 60 mg Lasix on Admission Will continue with 60mg daily as per cardiology Carvedilol is decreased Clinically a lot better today Continue Lasix 60mg daily Angina Equivalent Presented with SOB,Chest pressure Troponin minimally elevated-doubt ACS Will trend 1 more time-highest level of Troponin 0.3,trending down Has been on Heparin -will continue for 48 hours Aortic valve disease,S/P Bioprosthetic valve replacement in 2008 and followed by TAVR in 2013 Symptoms are contributing to valvular Heart disease Check ECHO:: * There is severe concentric left ventricular hypertrophy. * Ejection Fraction = 55-60%. * Septal motion is consistent with post-operative state. * There is a bioprosthetic aortic valve. * The aortic bioprostesis is not well visualized. * Systolic gradients suggest moderate to severe stenosis. * There is trace bioprosthetic valve insufficiency. * There is severe mitral annular calcification. * There is mild mitral stenosis. * There is mild mitral regurgitation. * There is mild tricuspid regurgitation. * The estimated systolic PAP is 42mmHg. Appreciate Cardiology input Diabetes type 2. She has been on multiple oral medications. We will hold metformin and Januvia and Starlix for now. Put her on sliding scale coverage while in the hospital. Blood sugar remains stable History of atrial fibrillation Not on any Anticoagulation Now in SR Hypertension. Blood pressure is well controlled at this time. Hyperlipidemia Continue current medication. Hypothyroidism. Continue replacement. Gastrointestinal prophylaxis with proton pump inhibitor and ranitidine. Deep vein thrombosis prophylaxis, will be put on heparin drip. Code status: She will be a full code. Will need to stay for 48 to 72 hours Vital Signs: Date Time Temp Pulse Resp B/P (MAP) Pulse Ox O2 Delivery O2 Flow Rate FiO2 06/24/17 16:00 Room Air 06/24/17 15:45 36.5 71 17 108/69 (82) 95 Room Air 06/24/17 13:19 95 Room Air 06/24/17 12:41 63 20 109/45 (66) 93 Room Air 06/24/17 12:33 63 20 109/46 (67) 93 Room Air 06/24/17 12:23 61 21 104/48 (66) 94 Room Air 06/24/17 12:12 60 19 106/38 (60) 93 Room Air 06/24/17 12:03 64 19 103/46 (65) 99 Nasal Cannula 2 06/24/17 11:54 63 22 112/55 (74) 98 Nasal Cannula 2 06/24/17 11:52 Nasal Cannula 2 06/24/17 11:50 62 20 100/37 98 Nasal Cannula 2 06/24/17 11:45 64 24 98/42 98 Nasal Cannula 2 06/24/17 11:40 65 24 104/54 97 Nasal Cannula 2 06/24/17 11:35 71 20 150/67 95 Nasal Cannula 2 06/24/17 11:34 Nasal Cannula 2 06/24/17 11:32 75 20 162/81 98 Nasal Cannula 2 06/24/17 11:29 76 21 161/66 99 Nasal Cannula 2 06/24/17 10:40 36.8 74 18 112/68 (83) 95 Room Air 06/24/17 10:40 95 Room Air 06/24/17 10:34 64 16 132/48 95 Room Air 06/24/17 08:15 93 Room Air 06/24/17 07:47 36.7 70 18 110/72 (85) 93 Room Air 06/24/17 04:53 36.5 74 16 116/70 (85) 93 Room Air 06/24/17 04:00 Room Air 06/24/17 00:00 Room Air 06/24/17 00:00 36.5 76 16 93/55 (68) 94 Room Air 06/23/17 20:00 95 Room Air 06/23/17 19:37 36.7 80 18 126/59 (81) 94 Room Air Lab Results: Results Past 24 Hours Test 06/23/17 20:17 06/24/17 07:52 06/24/17 08:12 06/24/17 13:08 Range/Units Bedside Glucose 162 204 70-90 mg/dl Activated Partial Thromboplast Time 42.8 21.0-31.0 SECONDS Partial Thromboplastin Ratio 1.6 White Blood Count 5.43 4.8-10.8 K/uL Red Blood Count 3.75 4.2-5.4 M/uL Hemoglobin 10.6 12.0-16.0 g/dL Hematocrit 32.2 37-47 % Mean Corpuscular Volume 85.9 80-100 fL Mean Corpuscular Hemoglobin 28.3 25-34 pg Mean Corpuscular Hemoglobin Concent 32.9 32-36 g/dl RDW Standard Deviation 51.1 36.4-46.3 fL RDW Coefficient of Variation 16.6 11.5-14.5 % Platelet Count 118 130-400 K/uL Mean Platelet Volume 10.4 7.4-10.4 fL Sodium Level 140 136-145 mmol/L Potassium Level 4.2 3.5-5.1 mmol/L Chloride Level 105 98-107 mmol/L Carbon Dioxide Level 28 21-32 mmol/L Anion Gap 7.0 3-11 mmol/L Blood Urea Nitrogen 33 7-18 mg/dl Creatinine 1.00 0.60-1.20 mg/dl Est Creatinine Clear Calc Drug Dose 51.1 ml/min Estimated GFR () 63.8 Estimated GFR (Non- 55.1 BUN/Creatinine Ratio 33.2 10-20 Random Glucose 128 70-99 mg/dl Calcium Level 8.7 8.5-10.1 mg/dl Test 06/24/17 16:03 06/24/17 16:45 Range/Units Activated Partial Thromboplast Time 67.4 21.0-31.0 SECONDS Partial Thromboplastin Ratio 2.6 Bedside Glucose 153 70-90 mg/dl
[2017-06-24] MEDS: PRAVASTATIN SOD 40 MG TAB PO SCH (21:00)
[2017-06-24] MEDS: CARVEDILOL 12.5 MG TAB PO SCH (21:00)
[2017-06-25] MEDS: HEPARIN 25,000 UNIT/500ML D5W 500 ML IV PRN ×2 (03:15→22:35)
[2017-06-25 04:00] VITALS: BP 106/52; PULSE 52; TEMP 36.4; O2SAT 100
[2017-06-25] MEDS: LEVOTHYROXINE 50 MCG TAB PO SCH (06:27)
[2017-06-25 07:12] LABS: HEMATOCRIT 30.6 % (37-47); MEAN CELL VOLUME 85.7 fL (80-100); MEAN CORPUSCULAR HEMOGLOBIN 28.6 pg (25-34); MEAN CORPUSCULAR HGB CONC 33.3 g/dl (32-36); MEAN PLATELET VOLUME 10.7 fL (7.4-10.4); PLATELET COUNT 119 K/uL (130-400); RED BLOOD COUNT 3.57 M/uL (4.2-5.4); WHITE BLOOD COUNT 5.29 K/uL (4.8-10.8)
[2017-06-25 07:26] LABS: PARTIAL THROMBOPLASTIN RATIO 2.3
[2017-06-25 07:57] VITALS: BP 100/63; PULSE 77; TEMP 36.5; O2SAT 96
[2017-06-25 07:57] LABS: BUN/CREATININE RATIO 31.3 (10-20); CALCIUM 8.3 mg/dl (8.5-10.1); CREATININE 0.91 mg/dl (0.60-1.20); MAGNESIUM 2.1 mg/dl (1.8-2.4)
[2017-06-25] MEDS: INSULIN ASPART 100 UNITS/ML 3 ML PEN SC SCH ×4 (08:19→20:46)
[2017-06-25] MEDS: GLIMEPIRIDE 2 MG TAB PO SCH ×2 (08:19→20:44)
[2017-06-25] MEDS: CHOLECALCIFEROL 1000 INTER.UNIT TAB PO SCH (08:20)
[2017-06-25] MEDS: FUROSEMIDE 20 MG TAB PO SCH (08:20)
[2017-06-25] MEDS: ASPIRIN 81 MG ECTAB PO SCH (08:20)
[2017-06-25] MEDS: CARVEDILOL 12.5 MG TAB PO SCH ×2 (08:20→20:44)
[2017-06-25] MEDS: MULTIVITAMIN TAB PO SCH (08:21)
[2017-06-25] MEDS: RANITIDINE HCL 150 MG TAB PO SCH ×2 (08:21→20:44)
--- NOTE | 2017-06-25 13:20 | CARDIOLOGY PROGRESS NOTE ---
DATE: 06/25/2017 DATE: 06/25/2017 The patient seen and examined. Chart, medications, telemetry reviewed. SUBJECTIVE: The patient feels slightly less breathless than on admission. Notes no chest pains. Notes no tachypalpitations. Notes no dizziness or lightheadedness. OBJECTIVE: VITAL SIGNS: Heart rate is 77, blood pressure is 100/63. NECK: Thin. There is no jugular venous distention. LUNGS: Clear to auscultation. CARDIOVASCULAR EXAMINATION: Regular with harsh grade 3/6 systolic murmur. There is no diastolic murmur. ABDOMEN: Soft with mild distention. EXTREMITIES: Without cyanosis or clubbing. There is trace pedal edema. IMPRESSION: A 76-year-old female with issues as follows: 1. Acute on chronic congestive heart failure secondary to severe valvular disease. 2. Severe bioprosthetic aortic valve stenosis. 3. Chronic rheumatoid arthritis. PLAN: Continue IV anticoagulation, begin oral anticoagulation today. Will discontinue terazosin; continue to hold lisinopril given relatively low blood pressures. Would like to continue carvedilol, though at reduced dose as ordered. Will continue to follow patient in the hospital. Diuretics have been reinstituted with furosemide at 60 mg q.a.m. and ultimate goals will be to anticoagulate patient for an additional 3 months in hopes of improving valve prosthesis stenosis. If symptoms worsen or are not managed medically well, the patient may require high risk surgical aortic valve replacement.
--- NOTE | 2017-06-25 14:31 | TEE ---
*NOTICE TO RECEIVING [employer] This information is strictly Confidential and protected under [place] law. [place] law prohibits you from making any further disclosure of this information unless further disclosure is expressly permitted by the written consent of the person to whom it pertains or is authorized by law. A general authorization for the release of medical or other information is not sufficient for this purpose. Hospital accepts no responsibility if the information is made available to any other person, INCLUDING THE PATIENT. Interpretation Summary * Transesophageal Echocardiogram Report * Name: PENNY JUAREZ Study Date: 06/24/2017 11:08 AM BP: 161/66 mmHg * Patient Location: [facility]\S\[id number]\S\2 HR: 73 * : 1940 (M/d/yyy) Gender: Female Height: 63 in * Age: 76 yrs Ethnicity: [place] Weight: 193 lb * Ordering Physician: Adarsh Díaz * Referring Physician: Self, Referred * Performed By: Rukhsana Chan RCS * * Reason For Study: AVR Stenosis * BSA: 1.9 m2 * -- Conclusions -- * The left ventricle is normal in size. * There is moderate concentric left ventricular hypertrophy. * No regional wall motion abnormalities noted. * Ejection Fraction = 50-55%. * There is a valve within a valve bioprosthesis present with trace perivalvular bioprosthetic valve insufficiency. The prsothesis is small with leaflets thickened but mobile. There is intrinsic prosthetic stenosis * The aortic root and ascending aorta are small in caliber * Mild atherosclerotic plaque(s) in the descending aorta. Procedure Details * The transesophageal portion of this study was personally supervised by the undersigned interpreting physician. * GEOVANI Probe #2 utilized for procedure. * The study was performed in Cardiopulmonary Department. * Time out was conducted by the physician, nurse, and control room technician with positive identification of patient and procedure. * Informed consent for Transesophageal Echocardiogram was obtained prior to the procedure. * An intravenous line was placed. A topical anesthetic agent was used for oropharangeal anesthesia. A bite block was inserted. * The patient's vital signs, including blood pressure, heart rate, pulse oximetry and cardiac rhythm were monitored throughout the procedure . * Exam start time: 1129 Probe Insert time: 1134 Probe Out/ Finish time: 1152 * A multifrequency, multiplane transesopheageal echocardiographic endoscope was inserted and manipulated in the standard fashion to achieve multiplane views. * The transesophageal probe was passed without difficulty. * The usual views were obtained; basal, mid-esophageal, transgastric and aortic views. * The patient tolerated the procedure well without evidence of orophangeal or esophageal trauma. * A 2D transesophageal echocardiogram with spectral and color flow Doppler was performed. * Meperidine 25 mg administered for sedation. * Midazolam 4 mg administered for sedation. * The posterior oropharynx was anesthetized using a topical anesthetic spray. A bite guard was inserted. Left Ventricle * The left ventricle is normal in size. * There is moderate concentric left ventricular hypertrophy. * Ejection Fraction = 50-55%. * No regional wall motion abnormalities noted. Atria * The left atrium is moderately dilated. * No thrombus is detected in the left atrial appendage. * Right atrial size is normal. * The interatrial septum is intact with no evidence for an atrial septal defect. Mitral Valve * There is mild mitral annular calcification. * There is no mitral valve stenosis. * There is trace mitral regurgitation. Tricuspid Valve * The tricuspid valve anatomy is normal. Aortic Valve * There is a valve within a valve bioprosthesis present with trace perivalvular bioprosthetic valve insufficiency. The prsothesis is small with leaflets thickened but mobile. There is intrinsic prosthetic stenosis Pulmonic Valve * The pulmonic valve is normal in structure and function. Great Vessels * The aortic root and ascending aorta are small in caliber * Mild atherosclerotic plaque(s) in the descending aorta. Right Ventricle * The right ventricular wall motion is normal.
[2017-06-25 15:02] VITALS: BP 125/75; PULSE 73; TEMP 36.7; O2SAT 95
--- NOTE | 2017-06-25 15:42 | Progress Note ---
Internal Med Progress Note Date of Service: Jun 25, 2017. Provider Documentation: SUBJECTIVE: The patient was seen and examined NO more SOB and or Chest tightness Feeling much better Some SOB on ambulation Will need to stay in hospital for 48 to 72 hours more Coumadin started OBJECTIVE: Vital Signs-as noted below Exam: General-no distress at rest Eyes-normal ENT-normal Neck-supple Lungs-Decreased breath sound bilaterally No Crackles Heart-Regular,prosthetic heart Valve sound Soft Aortic sound with ESM radiated to Carotid Abdomen-Benign Extremities-trace edema bilaterally Neuro-AAOx3 Lab data as noted below. ASSESSMENT & PLAN: Acute decompensated heart failure complicated by valvular heart disease. She has been on furosemide.CXR is suggestive of Mild CHF, Received 60 mg Lasix on Admission Will continue with 60mg daily as per cardiology Carvedilol is decreased Clinically a lot better today Continue Lasix 60mg daily Clinically stable Angina Equivalent Presented with SOB,Chest pressure Troponin minimally elevated-doubt ACS Will trend 1 more time-highest level of Troponin 0.3,trending down Has been on Heparin -will continue for 48 hours No more cheat pain Aortic valve disease,S/P Bioprosthetic valve replacement in 2008 and followed by TAVR in 2013 Symptoms are contributing to valvular Heart disease Check ECHO:: * There is severe concentric left ventricular hypertrophy. * Ejection Fraction = 55-60%. * Septal motion is consistent with post-operative state. * There is a bioprosthetic aortic valve. * The aortic bioprostesis is not well visualized. * Systolic gradients suggest moderate to severe stenosis. * There is trace bioprosthetic valve insufficiency. * There is severe mitral annular calcification. * There is mild mitral stenosis. * There is mild mitral regurgitation. * There is mild tricuspid regurgitation. * The estimated systolic PAP is 42mmHg. Appreciate Cardiology input Has significant Diabetes type 2. She has been on multiple oral medications. We will hold metformin and Januvia and Starlix for now. Put her on sliding scale coverage while in the hospital. Blood sugar remains stable History of atrial fibrillation Not on any Anticoagulation Now in SR Has been on Heparin Will start Coumadin and plan to continue for 3 months Hypertension. Blood pressure is well controlled at this time. Hyperlipidemia Continue current medication. Hypothyroidism. Continue replacement. Gastrointestinal prophylaxis with proton pump inhibitor and ranitidine. Deep vein thrombosis prophylaxis, will be put on heparin drip. Code status: She will be a full code. Will need to stay for 48 hours Vital Signs: Date Time Temp Pulse Resp B/P (MAP) Pulse Ox O2 Delivery O2 Flow Rate FiO2 06/25/17 15:02 36.7 73 16 125/75 (92) 95 06/25/17 12:00 Room Air 06/25/17 08:00 Room Air 06/25/17 07:57 36.5 77 16 100/63 (75) 96 06/25/17 04:00 36.4 52 16 106/52 (70) 100 Room Air 06/25/17 04:00 Room Air 06/25/17 01:57 Room Air 06/24/17 23:20 36.5 67 18 99/48 (65) 93 Room Air 91/53 (66) 06/24/17 20:00 Room Air 06/24/17 19:36 36.6 72 16 114/68 (83) 96 Room Air 06/24/17 16:00 Room Air 06/24/17 15:45 36.5 71 17 108/69 (82) 95 Room Air Lab Results: Results Past 24 Hours Test 06/24/17 16:03 06/24/17 16:45 06/24/17 19:58 06/25/17 06:25 Range/Units Activated Partial Thromboplast Time 67.4 59.4 21.0-31.0 SECONDS Partial Thromboplastin Ratio 2.6 2.3 Bedside Glucose 153 175 70-90 mg/dl White Blood Count 5.29 4.8-10.8 K/uL Red Blood Count 3.57 4.2-5.4 M/uL Hemoglobin 10.2 12.0-16.0 g/dL Hematocrit 30.6 37-47 % Mean Corpuscular Volume 85.7 80-100 fL Mean Corpuscular Hemoglobin 28.6 25-34 pg Mean Corpuscular Hemoglobin Concent 33.3 32-36 g/dl RDW Standard Deviation 51.1 36.4-46.3 fL RDW Coefficient of Variation 16.5 11.5-14.5 % Platelet Count 119 130-400 K/uL Mean Platelet Volume 10.7 7.4-10.4 fL Sodium Level 136 136-145 mmol/L Potassium Level 4.0 3.5-5.1 mmol/L Chloride Level 103 98-107 mmol/L Carbon Dioxide Level 26 21-32 mmol/L Anion Gap 7.0 3-11 mmol/L Blood Urea Nitrogen 28 7-18 mg/dl Creatinine 0.91 0.60-1.20 mg/dl Est Creatinine Clear Calc Drug Dose 56.3 ml/min Estimated GFR () 71.5 Estimated GFR (Non- 61.7 BUN/Creatinine Ratio 31.3 10-20 Random Glucose 185 70-99 mg/dl Calcium Level 8.3 8.5-10.1 mg/dl Magnesium Level 2.1 1.8-2.4 mg/dl Test 06/25/17 07:43 06/25/17 11:47 Range/Units Bedside Glucose 214 190 70-90 mg/dl
[2017-06-25] MEDS: WARFARIN SOD 5 MG TAB PO SCH (16:41)
[2017-06-25 19:00] VITALS: BP 115/57; PULSE 80; TEMP 36.9; O2SAT 94
[2017-06-25] MEDS: PRAVASTATIN SOD 40 MG TAB PO SCH (20:44)
[2017-06-25 23:51] VITALS: BP 101/53; PULSE 71; TEMP 36.7; O2SAT 94
[2017-06-26] VITALS (8 sets, daily range): BP systolic 106–153; BP diastolic 66–88; PULSE 58–97; TEMP 36.4–37; O2SAT 93–96
[2017-06-26] MEDS: LEVOTHYROXINE 50 MCG TAB PO SCH (06:20)
[2017-06-26 07:20] LABS: PARTIAL THROMBOPLASTIN RATIO 2.1
[2017-06-26] MEDS: INSULIN ASPART 100 UNITS/ML 3 ML PEN SC SCH ×4 (08:03→21:05)
[2017-06-26] MEDS: RANITIDINE HCL 150 MG TAB PO SCH ×2 (08:10→20:59)
[2017-06-26] MEDS: CARVEDILOL 12.5 MG TAB PO SCH ×3 (08:10→21:01)
[2017-06-26] MEDS: GLIMEPIRIDE 2 MG TAB PO SCH ×2 (08:10→21:00)
[2017-06-26] MEDS: CHOLECALCIFEROL 1000 INTER.UNIT TAB PO SCH (08:11)
[2017-06-26] MEDS: MULTIVITAMIN TAB PO SCH (08:11)
[2017-06-26] MEDS: FUROSEMIDE 20 MG TAB PO SCH (08:11)
[2017-06-26] MEDS: ASPIRIN 81 MG ECTAB PO SCH (08:11)
--- NOTE | 2017-06-26 11:23 | PROGRESS NOTE ---
DATE: 06/26/2017 The patient seen and examined. Chart, medications, telemetry reviewed. SUBJECTIVE: The patient feels improved this morning. Notes no worsening breathlessness. Weight has been stable. Notes no chest pains. Notes no fevers or chills. Notes no dizziness or lightheadedness. OBJECTIVE: VITAL SIGNS: Heart rate 75, blood pressure is 110/68. NECK: Thick. There is no distinct jugular venous distention. LUNGS: Reveal diminished breath sounds at the bases. CARDIOVASCULAR: Regular with harsh grade 3/6 systolic murmur heard throughout the precordium. ABDOMEN: Soft. EXTREMITIES: Without cyanosis or clubbing. There is no peripheral edema. LABORATORY DATA: The patient is appropriately anticoagulated with heparin. INR is pending. IMPRESSION: A 76-year-old female presented with acute on chronic congestive heart failure secondary to valvular disease, severe prosthetic aortic valve stenosis and conversion of anticoagulation from heparin to Coumadin. Continue current reduced dose of carvedilol, discontinue terazosin, furosemide has been increased to 60 mg today with clinical improvement. BNP will be ordered for a.m. INRs are ordered for daily.
--- NOTE | 2017-06-26 12:46 | Progress Note ---
Internal Med Progress Note Date of Service: Jun 26, 2017. Provider Documentation: SUBJECTIVE: The patient was seen and examined NO more SOB and or Chest tightness Some SOB on ambulation-much improved Will need to stay in hospital for 48 to 72 hours more Coumadin started OBJECTIVE: Vital Signs-as noted below Exam: General-no distress at rest Eyes-normal ENT-normal Neck-supple Lungs-Decreased breath sound bilaterally No Crackles Heart-Regular,prosthetic heart Valve sound Soft Aortic sound with ESM radiated to Carotid Abdomen-Benign Extremities-trace edema bilaterally Neuro-AAOx3 Lab data as noted below. ASSESSMENT & PLAN: Acute decompensated heart failure complicated by valvular heart disease. She has been on furosemide.CXR is suggestive of Mild CHF, Received 60 mg Lasix on Admission Will continue with 60mg daily as per cardiology Carvedilol is decreased Continue Lasix 60mg daily Clinically stable and feeling better Angina Equivalent Presented with SOB,Chest pressure Troponin minimally elevated-doubt ACS Will trend 1 more time-highest level of Troponin 0.3,trending down Has been on Heparin -will continue for 48 hours No more cheat pain and or SOB at rest Aortic valve disease,S/P Bioprosthetic valve replacement in 2008 and followed by TAVR in 2013 Symptoms are contributing to valvular Heart disease Check ECHO:: * There is severe concentric left ventricular hypertrophy. * Ejection Fraction = 55-60%. * Septal motion is consistent with post-operative state. * There is a bioprosthetic aortic valve. * The aortic bioprostesis is not well visualized. * Systolic gradients suggest moderate to severe stenosis. * There is trace bioprosthetic valve insufficiency. * There is severe mitral annular calcification. * There is mild mitral stenosis. * There is mild mitral regurgitation. * There is mild tricuspid regurgitation. * The estimated systolic PAP is 42mmHg. Appreciate Cardiology input Has significant Diabetes type 2. She has been on multiple oral medications. We will hold metformin and Januvia and Starlix for now. Put her on sliding scale coverage while in the hospital. Blood sugar remains stable History of atrial fibrillation Not on any Anticoagulation Now in SR Has been on Heparin Will start Coumadin and plan to continue for 3 months Check INR on Tuesday Hypertension. Blood pressure is well controlled at this time. Hyperlipidemia Continue current medication. Hypothyroidism. Continue replacement. Gastrointestinal prophylaxis with proton pump inhibitor and ranitidine. Deep vein thrombosis prophylaxis, will be put on heparin drip. Code status: She will be a full code. Will need to stay for 48 hours Vital Signs: Date Time Temp Pulse Resp B/P (MAP) Pulse Ox O2 Delivery O2 Flow Rate FiO2 06/26/17 11:15 36.8 66 20 112/72 (85) 95 Room Air 06/26/17 10:11 75 06/26/17 08:00 36.7 58 17 110/68 (82) 95 Room Air 06/26/17 08:00 Room Air 06/26/17 04:15 36.6 97 17 106/69 (81) 93 Room Air 06/26/17 04:00 Room Air 06/26/17 00:00 Room Air 06/25/17 23:51 36.7 71 18 101/53 (69) 94 Room Air 06/25/17 20:00 Room Air 06/25/17 19:00 36.9 80 18 115/57 (76) 94 Room Air 06/25/17 16:00 Room Air 06/25/17 15:02 36.7 73 16 125/75 (92) 95 Lab Results: Results Past 24 Hours Test 06/25/17 16:53 06/25/17 20:34 06/26/17 06:23 06/26/17 07:50 Range/Units Bedside Glucose 100 175 226 70-90 mg/dl Activated Partial Thromboplast Time 53.3 21.0-31.0 SECONDS Partial Thromboplastin Ratio 2.1 Test 06/26/17 11:39 Range/Units Bedside Glucose 176 70-90 mg/dl
[2017-06-26] MEDS: WARFARIN SOD 5 MG TAB PO SCH (15:49)
[2017-06-26] MEDS: HEPARIN 25,000 UNIT/500ML D5W 500 ML IV PRN (17:27)
[2017-06-26] MEDS: PRAVASTATIN SOD 40 MG TAB PO SCH (20:59)
[2017-06-27] VITALS (10 sets, daily range): BP systolic 95–146; BP diastolic 55–75; PULSE 70–95; TEMP 36.4–37; O2SAT 90–97
[2017-06-27] MEDS: LEVOTHYROXINE 50 MCG TAB PO SCH (06:07)
[2017-06-27 06:25] LABS: HEMATOCRIT 29.8 % (37-47); MEAN CELL VOLUME 85.6 fL (80-100); MEAN CORPUSCULAR HEMOGLOBIN 28.4 pg (25-34); MEAN CORPUSCULAR HGB CONC 33.2 g/dl (32-36); MEAN PLATELET VOLUME 10.4 fL (7.4-10.4); PLATELET COUNT 111 K/uL (130-400); RED BLOOD COUNT 3.48 M/uL (4.2-5.4); WHITE BLOOD COUNT 5.26 K/uL (4.8-10.8)
[2017-06-27 06:39] LABS: INR 1.1 (0.9-1.1); PARTIAL THROMBOPLASTIN RATIO 1.8; PROTHROMBIN TIME (PATIENT) 11.3 SECONDS (9.0-12.0)
[2017-06-27 06:58] LABS: BUN/CREATININE RATIO 23.8 (10-20); CALCIUM 8.5 mg/dl (8.5-10.1); CREATININE 0.8 mg/dl (0.60-1.20); MAGNESIUM 2.1 mg/dl (1.8-2.4); POTASSIUM 4.1 mmol/L (3.5-5.1)
[2017-06-27] MEDS: HEPARIN 25,000 UNIT/500ML D5W 500 ML IV PRN ×3 (06:59→14:55)
[2017-06-27] MEDS: CARVEDILOL 12.5 MG TAB PO SCH ×2 (08:18→21:17)
[2017-06-27] MEDS: RANITIDINE HCL 150 MG TAB PO SCH ×2 (08:18→21:16)
[2017-06-27] MEDS: MULTIVITAMIN TAB PO SCH (08:19)
[2017-06-27] MEDS: GLIMEPIRIDE 2 MG TAB PO SCH ×2 (08:19→21:16)
[2017-06-27] MEDS: ASPIRIN 81 MG ECTAB PO SCH (08:19)
[2017-06-27] MEDS: CHOLECALCIFEROL 1000 INTER.UNIT TAB PO SCH (08:19)
[2017-06-27] MEDS: FUROSEMIDE 20 MG TAB PO SCH (08:20)
[2017-06-27] MEDS: INSULIN ASPART 100 UNITS/ML 3 ML PEN SC SCH ×4 (08:23→21:18)
--- NOTE | 2017-06-27 12:11 | CARDIOLOGY PROGRESS NOTE ---
DATE: 06/27/2017 Patient seen and examined. Chart, medications, telemetry reviewed. SUBJECTIVE: The patient is feeling improved, less lower extremity edema less breathlessness though did feel somewhat breathless when bending over this morning. Otherwise, has been feeling well. No dizziness or lightheadedness. Notes no chest pains. Blood pressures have been trending slightly lower. OBJECTIVE: VITAL SIGNS: Heart rate is 80, blood pressure is 97/55. NECK: Thick. There is no jugular venous distention. LUNGS: Reveal better aeration to the bases. CARDIOVASCULAR: Regular with a harsh grade 3/6 systolic murmur. There is no diastolic murmur. ABDOMEN: Soft, nontender. EXTREMITIES: Without cyanosis or clubbing. There is less edema today. LABORATORY DATA: INR is 1.1. Sodium is 141, potassium is 4.1, chloride is 104, bicarb is 29, BUN 19, creatinine 0.8. IMPRESSION: 76-year-old female presented with acute on chronic congestive heart failure secondary to severe valvular disease with prior valve in valve aortic valve prosthesis implantation now with valve stenosis, high grade velocities. RECOMMENDATIONS: Will plan on continuing anticoagulation as treatment of underlying valve disease. Will discharge when INR becomes elevated. Heart failure appears to have improved. We have discontinued lisinopril and terazosin. Blood pressures are better controlled. Continue current dosing of carvedilol.
--- NOTE | 2017-06-27 15:01 | Progress Note ---
Internal Med Progress Note Date of Service: Jun 27, 2017. Provider Documentation: SUBJECTIVE: The patient was seen and examined NO more SOB and or Chest tightness Some SOB on ambulation-much improved Will need to stay in hospital for 48 to 72 hours more Coumadin started -INR not yet therapeutic OBJECTIVE: Vital Signs-as noted below Exam: General-no distress at rest Eyes-normal ENT-normal Neck-supple Lungs-Decreased breath sound bilaterally No Crackles and or wheezing Heart-Regular,prosthetic heart Valve sound Soft Aortic sound with ESM radiated to Carotid Abdomen-Benign Extremities-trace edema bilaterally Neuro-AAOx3 Lab data as noted below. ASSESSMENT & PLAN: Acute decompensated heart failure complicated by valvular heart disease. She has been on furosemide.CXR is suggestive of Mild CHF, Received 60 mg Lasix on Admission Will continue with 60mg daily as per cardiology Carvedilol is decreased Continue Lasix 60mg daily Clinically stable and feeling better Denies any symptoms Angina Equivalent Presented with SOB,Chest pressure Troponin minimally elevated-doubt ACS Will trend 1 more time-highest level of Troponin 0.3,trending down Has been on Heparin -will continue for 48 hours No more cheat pain and or SOB at rest Aortic valve disease,S/P Bioprosthetic valve replacement in 2008 and followed by TAVR in 2013 Symptoms are contributing to valvular Heart disease Check ECHO:: * There is severe concentric left ventricular hypertrophy. * Ejection Fraction = 55-60%. * Septal motion is consistent with post-operative state. * There is a bioprosthetic aortic valve. * The aortic bioprostesis is not well visualized. * Systolic gradients suggest moderate to severe stenosis. * There is trace bioprosthetic valve insufficiency. * There is severe mitral annular calcification. * There is mild mitral stenosis. * There is mild mitral regurgitation. * There is mild tricuspid regurgitation. * The estimated systolic PAP is 42mmHg. Appreciate Cardiology input Has significant Diabetes type 2. She has been on multiple oral medications. We will hold metformin and Januvia and Starlix for now. Put her on sliding scale coverage while in the hospital. Blood sugar remains stable History of atrial fibrillation Not on any Anticoagulation Now in SR Has been on Heparin Will start Coumadin and plan to continue for 3 months Check INR on Tuesday-1.1 Hypertension. Blood pressure is well controlled at this time. Lisinopril and Terazosin stopped Hyperlipidemia Continue current medication. Hypothyroidism. Continue replacement. Gastrointestinal prophylaxis with proton pump inhibitor and ranitidine. Deep vein thrombosis prophylaxis, will be put on heparin drip. Code status: She will be a full code. Will need a few more days before symptoms improve and INR therapeutic. Vital Signs: Date Time Temp Pulse Resp B/P (MAP) Pulse Ox O2 Delivery O2 Flow Rate FiO2 06/27/17 12:00 97 Room Air 06/27/17 11:19 36.9 84 20 97/55 (69) 97 Room Air 06/27/17 08:00 94 Room Air 06/27/17 07:23 36.4 95 20 95/57 (70) 94 Room Air 06/27/17 04:21 36.5 78 16 118/72 (87) 94 Room Air 06/27/17 04:00 Room Air 06/27/17 00:00 Room Air 06/26/17 23:45 36.7 78 16 106/66 (79) 95 Room Air 06/26/17 20:00 Room Air 06/26/17 19:50 37.0 82 18 113/66 (82) 96 Room Air 2.0 06/26/17 19:47 37.0 82 18 113/66 (82) 96 Room Air 06/26/17 16:21 36.4 80 16 153/88 (109) 96 Room Air 06/26/17 16:00 Room Air Lab Results: Results Past 24 Hours Test 06/26/17 16:27 06/26/17 20:23 06/27/17 05:56 06/27/17 07:53 Range/Units Bedside Glucose 141 221 223 70-90 mg/dl White Blood Count 5.26 4.8-10.8 K/uL Red Blood Count 3.48 4.2-5.4 M/uL Hemoglobin 9.9 12.0-16.0 g/dL Hematocrit 29.8 37-47 % Mean Corpuscular Volume 85.6 80-100 fL Mean Corpuscular Hemoglobin 28.4 25-34 pg Mean Corpuscular Hemoglobin Concent 33.2 32-36 g/dl RDW Standard Deviation 51.3 36.4-46.3 fL RDW Coefficient of Variation 16.5 11.5-14.5 % Platelet Count 111 130-400 K/uL Mean Platelet Volume 10.4 7.4-10.4 fL Prothrombin Time 11.3 9.0-12.0 SECONDS Prothromb Time International Ratio 1.1 0.9-1.1 Activated Partial Thromboplast Time 47.4 21.0-31.0 SECONDS Partial Thromboplastin Ratio 1.8 Sodium Level 141 136-145 mmol/L Potassium Level 4.1 3.5-5.1 mmol/L Chloride Level 104 98-107 mmol/L Carbon Dioxide Level 29 21-32 mmol/L Anion Gap 8.0 3-11 mmol/L Blood Urea Nitrogen 19 7-18 mg/dl Creatinine 0.80 0.60-1.20 mg/dl Est Creatinine Clear Calc Drug Dose 63.9 ml/min Estimated GFR () 83.6 Estimated GFR (Non- 72.1 BUN/Creatinine Ratio 23.8 10-20 Random Glucose 166 70-99 mg/dl Calcium Level 8.5 8.5-10.1 mg/dl Magnesium Level 2.1 1.8-2.4 mg/dl Test 06/27/17 11:35 Range/Units Bedside Glucose 195 70-90 mg/dl
[2017-06-27] MEDS ORDERED: WARFARIN SOD 7.5 MG TAB PO SCH (16:00)
[2017-06-27] MEDS: PRAVASTATIN SOD 40 MG TAB PO SCH (21:16)
[2017-06-28] VITALS (9 sets, daily range): BP systolic 126–151; BP diastolic 63–75; PULSE 71–87; TEMP 36.7–36.9; O2SAT 94–96
[2017-06-28] MEDS: LEVOTHYROXINE 50 MCG TAB PO SCH (05:44)
[2017-06-28] MEDS: HEPARIN 25,000 UNIT/500ML D5W 500 ML IV PRN ×2 (05:58→22:44)
[2017-06-28 06:22] LABS: BUN/CREATININE RATIO 25.4 (10-20); CALCIUM 8.7 mg/dl (8.5-10.1); CREATININE 0.78 mg/dl (0.60-1.20); MAGNESIUM 1.9 mg/dl (1.8-2.4); POTASSIUM 3.8 mmol/L (3.5-5.1)
[2017-06-28 06:29] LABS: INR 1.2 (0.9-1.1); PROTHROMBIN TIME (PATIENT) 12.7 SECONDS (9.0-12.0)
[2017-06-28] MEDS: GLIMEPIRIDE 2 MG TAB PO SCH ×2 (08:21→21:06)
[2017-06-28] MEDS: MULTIVITAMIN TAB PO SCH (08:21)
[2017-06-28] MEDS: ASPIRIN 81 MG ECTAB PO SCH (08:21)
[2017-06-28] MEDS: CARVEDILOL 12.5 MG TAB PO SCH ×2 (08:21→21:03)
[2017-06-28] MEDS: FUROSEMIDE 20 MG TAB PO SCH (08:22)
[2017-06-28] MEDS: CHOLECALCIFEROL 1000 INTER.UNIT TAB PO SCH (08:22)
[2017-06-28] MEDS: RANITIDINE HCL 150 MG TAB PO SCH ×2 (08:23→21:04)
[2017-06-28] MEDS: INSULIN ASPART 100 UNITS/ML 3 ML PEN SC SCH ×4 (08:29→21:09)
--- NOTE | 2017-06-28 12:25 | CARDIOLOGY PROGRESS NOTE ---
DATE: 06/28/2017 DATE: 06/28/2017 The patient seen and examined. Chart, medications, telemetry reviewed. SUBJECTIVE: The patient notes no complaints this morning, lower extremity edema is slightly improved. Notes no worsening breathlessness. OBJECTIVE: VITAL SIGNS: Heart rate is 71, blood pressure is 151/75. I's and O's demonstrate significant p.o. intake yesterday. NECK: Thick. There is no jugular venous distention. LUNGS: Clear with mildly diminished breath sounds. CARDIOVASCULAR EXAMINATION: Regular with harsh grade 3/6 systolic murmur. ABDOMEN: Soft, nontender. EXTREMITIES: Without edema. LABORATORY DATA: INR is 1.2 this morning. PLAN: Continue IV heparin until INR begins to increase. Will place fluid restriction to less than 2 liters per day. All other medications will be continued as prescribed.
[2017-06-28] MEDS: WARFARIN SOD 5 MG TAB PO SCH (15:38)
[2017-06-28] MEDS ORDERED: WARFARIN SOD 2.5 MG TAB PO ONE (19:00)
--- NOTE | 2017-06-28 19:19 | Progress Note ---
Medicine Progress Note Date & Time of Visit: Jun 28, 2017 at 19:05. Subjective Pt was seen and examined Lying in bed comfortable with no distress Pt said that she feels much better today she said that she has been walking to the bathroom with no distress denies any chest pain, palpitation, dizziness Objective Last 8 Hrs Date Time Temp Pulse Resp B/P (MAP) Pulse Ox O2 Delivery O2 Flow Rate FiO2 06/28/17 16:00 94 Room Air 06/28/17 15:15 36.7 85 18 131/65 (87) 95 Room Air 06/28/17 12:00 94 Room Air 06/28/17 11:32 36.9 71 18 151/75 (100) 94 Room Air Physical Exam: General- No acute distress Head- atraumatic Eyes- PERRL, EOMI ENT- oropharynx clear Neck- supple, no JVD Lungs- Decrease BS Heart- regular rhythm; +systolic murmur Abdomen- normal bowel sounds, soft, nontender Extremities-no calf tenderness Neuro- alert, oriented x 3; PERRL, EOMI; no facial palsy; no dysarthria Skin- warm & dry Laboratory Results: Last 24 Hours Test 06/27/17 21:02 06/28/17 05:21 06/28/17 07:42 06/28/17 11:40 Bedside Glucose 179 mg/dl 198 mg/dl 214 mg/dl Prothrombin Time 12.7 SECONDS Prothromb Time International Ratio 1.2 Activated Partial Thromboplast Time 53.2 SECONDS Partial Thromboplastin Ratio 2.0 Sodium Level 139 mmol/L Potassium Level 3.8 mmol/L Chloride Level 103 mmol/L Carbon Dioxide Level 29 mmol/L Anion Gap 7.0 mmol/L Blood Urea Nitrogen 20 mg/dl Creatinine 0.78 mg/dl Est Creatinine Clear Calc Drug Dose 65.5 ml/min Estimated GFR () 86.2 Estimated GFR (Non- 74.4 BUN/Creatinine Ratio 25.4 Random Glucose 179 mg/dl Calcium Level 8.7 mg/dl Magnesium Level 1.9 mg/dl Test 06/28/17 16:47 Bedside Glucose 164 mg/dl Assessment & Plan Acute decompensated heart failure complicated by valvular heart disease. CXR on admission showed Mild CHF Received 60 mg Lasix on Admission Continue Lasix 60mg daily On Carvedilol 12.5 mg Clinically stable cardiology on board Angina Equivalent Presented with SOB associated with Chest pressure Troponin trending down On heparin drip Asymptomatic currently Aortic valve disease S/P Bioprosthetic valve replacement in 2008 and followed by TAVR in 2014 Symptoms are contributing to valvular Heart disease Cardiology on board Check ECHO:: * There is severe concentric left ventricular hypertrophy. * Ejection Fraction = 55-60%. * Septal motion is consistent with post-operative state. * There is a bioprosthetic aortic valve. * The aortic bioprostesis is not well visualized. * Systolic gradients suggest moderate to severe stenosis. * There is trace bioprosthetic valve insufficiency. * There is severe mitral annular calcification. * There is mild mitral stenosis. * There is mild mitral regurgitation. * There is mild tricuspid regurgitation. * The estimated systolic PAP is 42mmHg. Diabetes type 2. hold metformin and Januvia and Starlix for now. on sliding scale coverage Blood sugar remains stable History of atrial fibrillation Not on any Anticoagulation Now in SR Continue Heparin drip Coumadin was starting INR 1.2 today Will give Coumadin 7.5 mg today check INR in am Hypertension. Blood pressure is well controlled at this time. Lisinopril and Terazosin stopped Hyperlipidemia Continue current medication. Hypothyroidism. Continue replacement. Gastrointestinal prophylaxis with proton pump inhibitor and ranitidine. Deep vein thrombosis prophylaxis On heparin drip Code status full code. Disposition Waiting for INR to be therapeutic. Consultants: Cardiology Current Inpatient Medications: Current Inpatient Medications Medications (Trade) Dose Ordered Sig/Taya Route Start Time Stop Time Status Last Admin Dose Admin Heparin Sodium/ Dextrose 500 ml @ 27 mls/hr [id number] PRN IV 06/21/17 17:45 07/21/17 17:44 06/28/17 05:58 27 MLS/HR Acetaminophen (Tylenol Tab) 650 mg Q4H PRN PO 06/21/17 17:45 07/21/17 17:44 Ondansetron HCl (Zofran Inj) 4 mg Q6H PRN IV 06/21/17 17:45 07/21/17 17:44 Aspirin (Ecotrin Tab) 81 mg DAILY PO 06/22/17 09:00 07/22/17 08:59 06/28/17 08:21 81 MG Cholecalciferol (Vitamin D Tab) 1,000 inter.unit DAILY PO 06/22/17 09:00 9/22/17 08:59 06/28/17 08:22 1,000 INTER.UNIT Folic Acid (Folvite Tab) 1 mg DAILY PO 06/22/17 09:00 07/22/17 08:59 06/28/17 08:22 1 MG Glimepiride (Amaryl Tab) 2 mg QPM PO 06/21/17 21:00 07/21/17 20:59 06/27/17 21:16 2 MG Glimepiride (Amaryl Tab) 4 mg QDB PO 06/22/17 08:00 07/22/17 07:59 06/28/17 08:21 4 MG Levothyroxine Sodium (Synthroid Tab) 50 mcg DAILYBB PO 06/22/17 06:30 07/22/17 06:59 06/28/17 05:44 50 MCG Lisinopril (Zestril Tab) 10 mg QAM PO 06/22/17 09:00 07/22/17 08:59 Future Hold 06/24/17 08:02 10 MG Methotrexate (Methotrexate Tab) 15 mg Fr@0900 PO 06/24/17 09:00 07/24/17 08:59 06/24/17 08:04 15 MG Multivitamins (Multivitamin Tab) 1 tab DAILY PO 06/22/17 09:00 07/22/17 08:59 06/28/17 08:21 1 TAB Nitroglycerin (Nitrostat Tab) 0.4 mg UD PRN UT 06/21/17 18:00 07/21/17 17:59 Pravastatin Sodium (Pravachol Tab) 40 mg HS PO 06/21/17 21:00 07/21/17 20:59 06/27/17 21:16 40 MG Ranitidine HCl (zANTac TAB) 150 mg BID PO 06/21/17 21:00 07/21/17 20:59 06/28/17 08:23 150 MG Insulin Aspart (novoLOG ASPART) SLIDING SCALE G... ACHS SC 06/21/17 21:00 07/21/17 20:59 06/28/17 17:57 4 UNITS Glucose (Glucose 40% Gel) 15-30 GRAMS 15 GRAMS... UD PRN PO 06/21/17 18:45 07/21/17 18:44 Glucose (Glucose Chew Tab) 4-8 Tablets 4 Tabl... UD PRN PO 06/21/17 18:45 07/21/17 18:44 Dextrose (Dextrose 50% 50ML Syringe) 25-50ML OF 50% DW IV FOR... UD PRN IV 06/21/17 18:45 07/21/17 18:44 Glucagon (Glucagon Inj) 1 mg UD PRN SQ 06/21/17 18:45 07/21/17 18:44 Furosemide 40 mg/ Syringe 4 ml @ 4 mls/min DAILY IV 06/22/17 09:00 07/22/17 08:59 Future Hold 06/23/17 07:50 4 MLS/MIN Carvedilol (Coreg Tab) 12.5 mg BID PO 06/24/17 21:00 07/21/17 20:59 06/28/17 08:21 12.5 MG Furosemide (Lasix Tab) 60 mg QAM PO 06/25/17 09:00 07/25/17 08:59 06/28/17 08:22 60 MG Warfarin Sodium (Coumadin Tab) 5 mg DAILY@16 PO 06/25/17 16:00 07/25/17 15:59 Future hold 06/28/17 15:38 5 MG
[2017-06-28] MEDS: PRAVASTATIN SOD 40 MG TAB PO SCH (21:04)
[2017-06-29] VITALS (9 sets, daily range): BP systolic 114–149; BP diastolic 51–73; PULSE 69–84; TEMP 36.4–37.1; O2SAT 92–95
[2017-06-29] MEDS: LEVOTHYROXINE 50 MCG TAB PO SCH (05:31)
[2017-06-29 06:35] LABS: HEMATOCRIT 30.7 % (37-47); MEAN CELL VOLUME 86.2 fL (80-100); MEAN CORPUSCULAR HEMOGLOBIN 28.4 pg (25-34); MEAN CORPUSCULAR HGB CONC 32.9 g/dl (32-36); MEAN PLATELET VOLUME 10.2 fL (7.4-10.4); PLATELET COUNT 123 K/uL (130-400); RED BLOOD COUNT 3.56 M/uL (4.2-5.4); WHITE BLOOD COUNT 5.63 K/uL (4.8-10.8)
[2017-06-29 07:00] LABS: INR 1.4 (0.9-1.1); PARTIAL THROMBOPLASTIN RATIO 2.3; PROTHROMBIN TIME (PATIENT) 15.4 SECONDS (9.0-12.0)
[2017-06-29 07:11] LABS: BUN/CREATININE RATIO 25.9 (10-20); CALCIUM 8.7 mg/dl (8.5-10.1); CREATININE 0.83 mg/dl (0.60-1.20)
[2017-06-29] MEDS: GLIMEPIRIDE 2 MG TAB PO SCH ×2 (08:37→19:46)
[2017-06-29] MEDS: RANITIDINE HCL 150 MG TAB PO SCH ×2 (08:37→19:46)
[2017-06-29] MEDS: ASPIRIN 81 MG ECTAB PO SCH (08:37)
[2017-06-29] MEDS: CARVEDILOL 12.5 MG TAB PO SCH ×2 (08:37→19:45)
[2017-06-29] MEDS: MULTIVITAMIN TAB PO SCH (08:38)
[2017-06-29] MEDS: FUROSEMIDE 20 MG TAB PO SCH (08:38)
[2017-06-29] MEDS: CHOLECALCIFEROL 1000 INTER.UNIT TAB PO SCH (08:38)
[2017-06-29] MEDS: INSULIN ASPART 100 UNITS/ML 3 ML PEN SC SCH ×4 (08:44→20:32)
--- NOTE | 2017-06-29 14:54 | CARDIOLOGY PROGRESS NOTE ---
DATE: 06/29/2017 DATE: 06/29/2017 The patient seen and examined. Chart, medications, telemetry reviewed. SUBJECTIVE: The patient notes no complaints, overall feels well. Notes no dizziness or lightheadedness. Heart rate and blood pressure have been controlled. Weight has been stable. OBJECTIVE: VITAL SIGNS: Heart rate 69, blood pressure 149/73. Telemetry reveals sinus rhythm. NECK: Thick. There is no distinct jugular venous distention. LUNGS: Reveal mildly diminished breath sounds, but are clear. CARDIOVASCULAR EXAMINATION: Regular with harsh grade 3/6 systolic murmur. ABDOMEN: Soft, nontender. EXTREMITIES: Without cyanosis or clubbing. There is no edema today. LABORATORY STUDIES: Sodium is 137, potassium is 4.0, chloride is 103, bicarb is 28, BUN is 22, creatinine 0.8, hemoglobin is 10.1, INR is 1.4. IMPRESSION: A 76-year-old female with history of valvular stenosis with acute on chronic decompensated congestive heart failure secondary to valvular disease, clinically improving and planned full anticoagulation with heparin to Coumadin attempt to moderate aortic valve prosthesis disease. All other medications are to be continued as ordered. The patient clinically stable since initiation of therapy.
[2017-06-29] MEDS: HEPARIN 25,000 UNIT/500ML D5W 500 ML IV PRN ×2 (15:21→16:31)
[2017-06-29] MEDS ORDERED: WARFARIN SOD 7.5 MG TAB PO SCH (16:00)
--- NOTE | 2017-06-29 19:11 | Progress Note ---
Medicine Progress Note Date & Time of Visit: Jun 29, 2017 at 19:07. Subjective Pt was seen and examined Sitting in chair comfortable with no distress Denies any symptoms Objective Last 8 Hrs Date Time Temp Pulse Resp B/P (MAP) Pulse Ox O2 Delivery O2 Flow Rate FiO2 06/29/17 16:00 Room Air 06/29/17 15:32 36.6 79 18 130/62 (84) 93 Room Air 06/29/17 12:00 95 Room Air 06/29/17 11:38 37.1 69 18 149/73 (98) 95 Room Air Physical Exam: General- No acute distress Head- atraumatic Eyes- PERRL, EOMI ENT- oropharynx clear Neck- supple, no JVD Lungs- Decrease BS Heart- regular rhythm; +systolic murmur Abdomen- normal bowel sounds, soft, nontender Extremities-no calf tenderness Neuro- alert, oriented x 3; PERRL, EOMI; no facial palsy; no dysarthria Skin- warm & dry Laboratory Results: Last 24 Hours Test 06/28/17 21:04 06/29/17 06:11 06/29/17 07:56 06/29/17 11:53 Bedside Glucose 171 mg/dl 217 mg/dl 232 mg/dl White Blood Count 5.63 K/uL Red Blood Count 3.56 M/uL Hemoglobin 10.1 g/dL Hematocrit 30.7 % Mean Corpuscular Volume 86.2 fL Mean Corpuscular Hemoglobin 28.4 pg Mean Corpuscular Hemoglobin Concent 32.9 g/dl RDW Standard Deviation 52.6 fL RDW Coefficient of Variation 16.9 % Platelet Count 123 K/uL Mean Platelet Volume 10.2 fL Prothrombin Time 15.4 SECONDS Prothromb Time International Ratio 1.4 Activated Partial Thromboplast Time 59.7 SECONDS Partial Thromboplastin Ratio 2.3 Sodium Level 137 mmol/L Potassium Level 4.0 mmol/L Chloride Level 103 mmol/L Carbon Dioxide Level 28 mmol/L Anion Gap 6.0 mmol/L Blood Urea Nitrogen 22 mg/dl Creatinine 0.83 mg/dl Est Creatinine Clear Calc Drug Dose 61.5 ml/min Estimated GFR () 79.9 Estimated GFR (Non- 69.0 BUN/Creatinine Ratio 25.9 Random Glucose 193 mg/dl Calcium Level 8.7 mg/dl Test 06/29/17 16:23 Bedside Glucose 109 mg/dl Assessment & Plan Acute decompensated heart failure complicated by valvular heart disease. CXR on admission showed Mild CHF Received 60 mg Lasix on Admission Continue Lasix 60mg daily On Carvedilol 12.5 mg Clinically stable cardiology on board Angina Equivalent Presented with SOB associated with Chest pressure Troponin trending down On heparin drip Asymptomatic currently Aortic valve disease S/P Bioprosthetic valve replacement in 2008 and followed by TAVR in 2013 Symptoms are contributing to valvular Heart disease Cardiology on board Check ECHO:: * There is severe concentric left ventricular hypertrophy. * Ejection Fraction = 55-60%. * Septal motion is consistent with post-operative state. * There is a bioprosthetic aortic valve. * The aortic bioprostesis is not well visualized. * Systolic gradients suggest moderate to severe stenosis. * There is trace bioprosthetic valve insufficiency. * There is severe mitral annular calcification. * There is mild mitral stenosis. * There is mild mitral regurgitation. * There is mild tricuspid regurgitation. * The estimated systolic PAP is 42mmHg. Diabetes type 2. hold metformin and Januvia and Starlix for now. on sliding scale coverage Blood sugar remains stable History of atrial fibrillation Not on any Anticoagulation Now in SR Continue Heparin drip Coumadin was starting INR 1.4 today Will give Coumadin 7.5 mg today check INR in am Hypertension. Blood pressure is well controlled at this time. Lisinopril and Terazosin stopped Hyperlipidemia Continue current medication. Hypothyroidism. Continue replacement. Gastrointestinal prophylaxis with proton pump inhibitor and ranitidine. Deep vein thrombosis prophylaxis On heparin drip Code status full code. Disposition Will discharge tomorrow Consultants: Cardiology Current Inpatient Medications: Current Inpatient Medications Medications (Trade) Dose Ordered Sig/Taya Route Start Time Stop Time Status Last Admin Dose Admin Heparin Sodium/ Dextrose 500 ml @ 27 mls/hr [id number] PRN IV 06/21/17 17:45 07/21/17 17:44 06/29/17 16:31 27 MLS/HR Acetaminophen (Tylenol Tab) 650 mg Q4H PRN PO 06/21/17 17:45 07/21/17 17:44 Ondansetron HCl (Zofran Inj) 4 mg Q6H PRN IV 06/21/17 17:45 07/21/17 17:44 Aspirin (Ecotrin Tab) 81 mg DAILY PO 06/22/17 09:00 07/22/17 08:59 06/29/17 08:37 81 MG Cholecalciferol (Vitamin D Tab) 1,000 inter.unit DAILY PO 06/22/17 09:00 07/22/17 08:59 06/29/17 08:38 1,000 INTER.UNIT Folic Acid (Folvite Tab) 1 mg DAILY PO 06/22/17 09:00 07/22/17 08:59 06/29/17 08:37 1 MG Glimepiride (Amaryl Tab) 2 mg QPM PO 06/21/17 21:00 07/21/17 20:59 06/28/17 21:06 2 MG Glimepiride (Amaryl Tab) 4 mg QDB PO 06/22/17 08:00 07/22/17 07:59 06/29/17 08:37 4 MG Levothyroxine Sodium (Synthroid Tab) 50 mcg DAILYBB PO 06/22/17 06:30 07/22/17 06:59 06/29/17 05:31 50 MCG Lisinopril (Zestril Tab) 10 mg QAM PO 06/22/17 09:00 07/22/17 08:59 Future Hold 06/24/17 08:02 10 MG Methotrexate (Methotrexate Tab) 15 mg Fr@0900 PO 06/24/17 09:00 07/24/17 08:59 06/24/17 08:04 15 MG Multivitamins (Multivitamin Tab) 1 tab DAILY PO 06/22/17 09:00 07/22/17 08:59 06/29/17 08:38 1 TAB Nitroglycerin (Nitrostat Tab) 0.4 mg UD PRN UT 06/21/17 18:00 07/21/17 17:59 Pravastatin Sodium (Pravachol Tab) 40 mg HS PO 06/21/17 21:00 07/21/17 20:59 06/28/17 21:04 40 MG Ranitidine HCl (zANTac TAB) 150 mg BID PO 06/21/17 21:00 07/21/17 20:59 06/29/17 08:37 150 MG Insulin Aspart (novoLOG ASPART) SLIDING SCALE G... ACHS SC 06/21/17 21:00 07/21/17 20:59 06/29/17 17:38 2 UNITS Glucose (Glucose 40% Gel) 15-30 GRAMS 15 GRAMS... UD PRN PO 06/21/17 18:45 07/21/17 18:44 Glucose (Glucose Chew Tab) 4-8 Tablets 4 Tabl... UD PRN PO 06/21/17 18:45 07/21/17 18:44 Dextrose (Dextrose 50% 50ML Syringe) 25-50ML OF 50% DW IV FOR... UD PRN IV 06/21/17 18:45 07/21/17 18:44 Glucagon (Glucagon Inj) 1 mg UD PRN SQ 06/21/17 18:45 07/21/17 18:44 Furosemide 40 mg/ Syringe 4 ml @ 4 mls/min DAILY IV 06/22/17 09:00 07/22/17 08:59 Future Hold 06/23/17 07:50 4 MLS/MIN Carvedilol (Coreg Tab) 12.5 mg BID PO 06/24/17 21:00 07/21/17 20:59 06/29/17 08:37 12.5 MG Furosemide (Lasix Tab) 60 mg QAM PO 06/25/17 09:00 07/25/17 08:59 06/29/17 08:38 60 MG Warfarin Sodium (Coumadin Tab) 7.5 mg DAILY@16 PO 06/29/17 16:00 07/25/17 15:59 06/29/17 16:42 7.5 MG
[2017-06-29] MEDS: PRAVASTATIN SOD 40 MG TAB PO SCH (19:46)
[2017-06-30 04:47] VITALS: BP 136/76; PULSE 76; TEMP 36.6; O2SAT 94
[2017-06-30 05:44] LABS: HEMATOCRIT 30.6 % (37-47); MEAN CELL VOLUME 87.9 fL (80-100); MEAN CORPUSCULAR HEMOGLOBIN 28.7 pg (25-34); MEAN CORPUSCULAR HGB CONC 32.7 g/dl (32-36); MEAN PLATELET VOLUME 10.1 fL (7.4-10.4); PLATELET COUNT 135 K/uL (130-400); RED BLOOD COUNT 3.48 M/uL (4.2-5.4); WHITE BLOOD COUNT 5.37 K/uL (4.8-10.8)
[2017-06-30 06:02] LABS: INR 1.7 (0.9-1.1); PARTIAL THROMBOPLASTIN RATIO 2.6; PROTHROMBIN TIME (PATIENT) 18.7 SECONDS (9.0-12.0)
[2017-06-30] MEDS: LEVOTHYROXINE 50 MCG TAB PO SCH (06:18)
[2017-06-30 07:18] VITALS: BP 137/77; PULSE 95; TEMP 36.7; O2SAT 95
[2017-06-30 08:00] VITALS: O2SAT 95
[2017-06-30] MEDS: CARVEDILOL 12.5 MG TAB PO SCH (08:33)
[2017-06-30] MEDS: CHOLECALCIFEROL 1000 INTER.UNIT TAB PO SCH (08:33)
[2017-06-30] MEDS: FUROSEMIDE 20 MG TAB PO SCH (08:33)
[2017-06-30] MEDS: RANITIDINE HCL 150 MG TAB PO SCH (08:33)
[2017-06-30] MEDS: ASPIRIN 81 MG ECTAB PO SCH (08:33)
[2017-06-30] MEDS: MULTIVITAMIN TAB PO SCH (08:33)
[2017-06-30] MEDS: GLIMEPIRIDE 2 MG TAB PO SCH (08:34)
[2017-06-30] MEDS: INSULIN ASPART 100 UNITS/ML 3 ML PEN SC SCH ×2 (08:37→12:44)
--- NOTE | 2017-06-30 11:30 | CARDIOLOGY PROGRESS NOTE ---
DATE: 06/30/2017 DATE: 06/30/2017 The patient seen and examined. Chart, medications, telemetry reviewed. SUBJECTIVE: The patient feels well this morning. Notes no dizziness or lightheadedness. Notes no bleeding difficulties. INR is now becoming therapeutic at 1.7. OBJECTIVE: VITAL SIGNS: Heart rate 95, blood pressure 137/77. NECK: Thin. There is no jugular venous distention. No carotid bruits. LUNGS: Clear. CARDIOVASCULAR EXAMINATION: Regular. There is no S3 gallop. ABDOMEN: Soft, nontender. EXTREMITIES: Without cyanosis or clubbing. There is no peripheral edema. IMPRESSION: A 76-year-old female with complex issues resulting in hospitalization with acute on chronic decompensated congestive heart failure, now clinically improved. Issues secondary to valve on valve prosthetic aortic valve stenosis. Medications have been adjusted in hospital, specifically her furosemide was increased, carvedilol was decreased and terazosin discontinued. The patient will be discharged on current regimen. In addition anticoagulation was begun with IV now to oral warfarin. Coumadin clinic referral recommended with planned followup with cardiology Breanna Ott in 2-3 weeks time. RODRIGUEZ
[2017-06-30 12:11] VITALS: BP 131/56; PULSE 68; TEMP 36.8; O2SAT 94
[2017-06-30 13:12] VITALS: BP 131/56; PULSE 68; TEMP 36.8; O2SAT 94
--- NOTE | 2017-06-30 13:47 | Progress Note ---
Medicine Progress Note Date & Time of Visit: Jun 30, 2017 at 13:38. Subjective Pt was seen and examined Lying in bed comfortable with no distress Pt said that she feels fine she said that she had a good night denies any chest pain, palpitation, dizziness and SOB Objective Last 8 Hrs Date Time Temp Pulse Resp B/P (MAP) Pulse Ox O2 Delivery O2 Flow Rate FiO2 06/30/17 13:12 36.8 68 18 94 Room Air 06/30/17 12:11 36.8 68 18 131/56 (81) 94 Room Air 06/30/17 08:00 95 Room Air 06/30/17 07:18 36.7 95 16 137/77 (97) 95 Room Air Physical Exam: General- No acute distress Head- atraumatic Eyes- PERRL, EOMI ENT- oropharynx clear Neck- supple, no JVD Lungs- Decrease BS Heart- regular rhythm; +systolic murmur Abdomen- normal bowel sounds, soft, nontender Extremities-no calf tenderness Neuro- alert, oriented x 3; PERRL, EOMI; no facial palsy; no dysarthria Skin- warm & dry Laboratory Results: Last 24 Hours Test 06/29/17 16:23 06/29/17 20:27 06/30/17 05:11 06/30/17 05:13 Bedside Glucose 109 mg/dl 231 mg/dl White Blood Count 5.37 K/uL Red Blood Count 3.48 M/uL Hemoglobin 10.0 g/dL Hematocrit 30.6 % Mean Corpuscular Volume 87.9 fL Mean Corpuscular Hemoglobin 28.7 pg Mean Corpuscular Hemoglobin Concent 32.7 g/dl RDW Standard Deviation 54.1 fL RDW Coefficient of Variation 17.3 % Platelet Count 135 K/uL Mean Platelet Volume 10.1 fL Prothrombin Time 18.7 SECONDS Prothromb Time International Ratio 1.7 Activated Partial Thromboplast Time 68.3 SECONDS Partial Thromboplastin Ratio 2.6 Test 06/30/17 07:41 06/30/17 11:57 Bedside Glucose 212 mg/dl 208 mg/dl Assessment & Plan Acute decompensated heart failure complicated by valvular heart disease. CXR on admission showed Mild CHF Received 60 mg Lasix on Admission Continue Lasix 60mg daily ( was on 40mg at home) Carvedilol decreased to 12.5 mg cardiology on board case discussed with cardiology and OK to discharge home today Follow up with cardiology in 2- 3 weeks Angina Equivalent Presented with SOB associated with Chest pressure Troponin trending down On heparin drip Asymptomatic currently Aortic valve disease S/P Bioprosthetic valve replacement in 2008 and followed by TAVR in 2013 Symptoms are contributing to valvular Heart disease Cardiology on board Check ECHO:: * There is severe concentric left ventricular hypertrophy. * Ejection Fraction = 55-60%. * Septal motion is consistent with post-operative state. * There is a bioprosthetic aortic valve. * The aortic bioprostesis is not well visualized. * Systolic gradients suggest moderate to severe stenosis. * There is trace bioprosthetic valve insufficiency. * There is severe mitral annular calcification. * There is mild mitral stenosis. * There is mild mitral regurgitation. * There is mild tricuspid regurgitation. * The estimated systolic PAP is 42mmHg. Diabetes type 2. hold metformin and Januvia and Starlix for now. on sliding scale coverage Blood sugar remains stable History of atrial fibrillation Not on any Anticoagulation Now in SR Continue Heparin drip Coumadin was starting INR 1.7 today Will give Coumadin 7.5 mg today check INR on Tuesday Hypertension. Blood pressure is well controlled at this time. Lisinopril and Terazosin stopped Hyperlipidemia Continue current medication. Hypothyroidism. Continue replacement. Gastrointestinal prophylaxis with proton pump inhibitor and ranitidine. Deep vein thrombosis prophylaxis On heparin drip Code status full code. Disposition Will discharge home today Consultants: Cardiology Current Inpatient Medications: Current Inpatient Medications Medications (Trade) Dose Ordered Sig/Taya Route Start Time Stop Time Status Last Admin Dose Admin Heparin Sodium/ Dextrose 500 ml @ 27 mls/hr [id number] PRN IV 06/21/17 17:45 07/21/17 17:44 06/29/17 16:31 27 MLS/HR Acetaminophen (Tylenol Tab) 650 mg Q4H PRN PO 06/21/17 17:45 07/21/17 17:44 Ondansetron HCl (Zofran Inj) 4 mg Q6H PRN IV 06/21/17 17:45 07/21/17 17:44 Aspirin (Ecotrin Tab) 81 mg DAILY PO 06/22/17 09:00 07/22/17 08:59 06/30/17 08:33 81 MG Cholecalciferol (Vitamin D Tab) 1,000 inter.unit DAILY PO 06/22/17 09:00 07/22/17 08:59 06/30/17 08:33 1,000 INTER.UNIT Folic Acid (Folvite Tab) 1 mg DAILY PO 06/22/17 09:00 07/22/17 08:59 06/30/17 08:32 1 MG Glimepiride (Amaryl Tab) 2 mg QPM PO 06/21/17 21:00 07/21/17 20:59 06/29/17 19:46 2 MG Glimepiride (Amaryl Tab) 4 mg QDB PO 06/22/17 08:00 07/22/17 07:59 06/30/17 08:34 4 MG Levothyroxine Sodium (Synthroid Tab) 50 mcg DAILYBB PO 06/22/17 06:30 07/22/17 06:59 06/30/17 06:18 50 MCG Lisinopril (Zestril Tab) 10 mg QAM PO 06/22/17 09:00 07/22/17 08:59 Future Hold 06/24/17 08:02 10 MG Methotrexate (Methotrexate Tab) 15 mg Fr@0900 PO 06/24/17 09:00 07/24/17 08:59 06/24/17 08:04 15 MG Multivitamins (Multivitamin Tab) 1 tab DAILY PO 06/22/17 09:00 07/22/17 08:59 06/30/17 08:33 1 TAB Nitroglycerin (Nitrostat Tab) 0.4 mg UD PRN UT 06/21/17 18:00 07/21/17 17:59 Pravastatin Sodium (Pravachol Tab) 40 mg HS PO 06/21/17 21:00 07/21/17 20:59 06/29/17 19:46 40 MG Ranitidine HCl (zANTac TAB) 150 mg BID PO 06/21/17 21:00 07/21/17 20:59 06/30/17 08:33 150 MG Insulin Aspart (novoLOG ASPART) SLIDING SCALE G... ACHS SC 06/21/17 21:00 07/21/17 20:59 06/30/17 12:44 8 UNITS Glucose (Glucose 40% Gel) 15-30 GRAMS 15 GRAMS... UD PRN PO 06/21/17 18:45 07/21/17 18:44 Glucose (Glucose Chew Tab) 4-8 Tablets 4 Tabl... UD PRN PO 06/21/17 18:45 07/21/17 18:44 Dextrose (Dextrose 50% 50ML Syringe) 25-50ML OF 50% DW IV FOR... UD PRN IV 06/21/17 18:45 07/21/17 18:44 Glucagon (Glucagon Inj) 1 mg UD PRN SQ 06/21/17 18:45 07/21/17 18:44 Furosemide 40 mg/ Syringe 4 ml @ 4 mls/min DAILY IV 06/22/17 09:00 07/22/17 08:59 Future Hold 06/23/17 07:50 4 MLS/MIN Carvedilol (Coreg Tab) 12.5 mg BID PO 06/24/17 21:00 07/21/17 20:59 06/30/17 08:33 12.5 MG Furosemide (Lasix Tab) 60 mg QAM PO 06/25/17 09:00 07/25/17 08:59 06/30/17 08:33 60 MG Warfarin Sodium (Coumadin Tab) 7.5 mg DAILY@16 PO 06/29/17 16:00 07/25/17 15:59 06/29/17 16:42 7.5 MG
[2017-06-30] MEDS ORDERED: CMD75 PO (13:53)
[2017-06-30] MEDS ORDERED: LSX40 PO (13:53)
[2017-06-30] MEDS ORDERED: CRG25 PO (13:53)
--- NOTE | 2017-06-30 14:02 | Discharge Instructions ---
Discharge Instructions Date of Service Jun 30, 2017. Admission Reason for Admission: Unstable Angina Discharge Discharge Diagnosis / Problem: Acute decompensated heart failure complicated by valvular heart disease Discharge Goals Goal(s): Decrease discomfort, Improve function, Improve disease control Activity Recommendations Activity Limitations: resume your previous activity (as tolerated) . Instructions / Follow-Up Instructions / Follow-Up Follow up appointment with your primary care provider Dr. Mitchell on Jul 06 @1: 05 pm Follow up with your Cardiology Dr. Díaz in 2-3 weeks, The cardiology office will call you for the appointment Follow up with the coumadin clinic, the clinic will call you for the appointment Check INR on Tuesday, today INR 1.7 (Lab order given to patient) Continue Coumadin 7.5 mg for now until instructing to change the dose according the INR level Monitor Blood pressure Follow a low salt diet and limited fluid intake Fall precaution since you are on blood thinner to avoid any intracranial bleeding Terazosin and Lisinopril discontinued Lasix increased to 60mg daily Medication Instructions: * Warfarin is a medicine prescribed to prevent blood clots * Warfarin will thin your blood and help prevent new clots * Take your medications exactly as directed * Never skip a dose. Never take a double dose. If you miss a dose, take it as soon as you remember * It is important for your doctor to monitor your prothrombin time (PT). This is a lab test * Keep your appointment for lab tests Risk of Adverse Drug Reactions and Interactions: * Warfarin increases your risk of bleeding * The food you eat and other medications you take can affect how Warfarin works in your body * Ask your doctor about daily aspirin therapy * It is very important to talk with your doctor about all of the other medicines , antibiotics, vitamins or herbal products that you are taking * All of your medication must be approved by your doctor, including new medicines, as well as medicines you have taken before you started taking Warfarin Diet: * In order for Warfarin to work properly, it is important to keep your intake of Vitamin K as consistent as possible * You should avoid any sudden change in Vitamin K intake * Report any significant changes in your diet or weight to your doctor Call your Primary Care doctor if you experience any of the following: * Swelling or Pain in your leg * Sudden, continuous pain deep in a muscle * Pain that worsens when you are active or when you stand still for a long time * Chest Pain * Sudden Shortness of Breath * Rapid or pounding heart beat * Fainting * Dizziness * Cough with blood or bloody sputum * Sweating more than normal * Bruises * Heavy or uncontrolled bleeding * Blood in your urine, stool or vomit * Black or tarry stools Follow Up: It is important for you to keep your follow up appointments with your medical provider. Current Hospital Diet Patient's current hospital diet: Diabetes Type 2 Diet Discharge Diet Recommended Diet: Low Sodium Diet (2gm Na), Diabetes Type 2 Diet Pending Studies Studies pending at discharge: no Medical Emergencies . Who to Call and When: Medical Emergencies: If at any time you feel your situation is an emergency, please call 911 immediately. . Non-Emergent Contact Non-Emergency issues call your: Primary Care Provider Call Non-Emergent contact if: you have any medication questions . . "Provider Documentation" section prepared by Manny Schwartz. . VTE Core Measure Inpt VTE Proph given/why not?: Unfractionated heparin SQ, Warfarin (Coumadin)
--- NOTE | 2017-07-03 15:31 | Discharge Summary ---
Discharge Summary Date of Service Jul 03, 2017. Discharge Summary Admission Date: Jun 21, 2017 at 17:48 Discharge Date: Jun 30, 2017 Discharge Disposition: Home Principal Diagnosis: Acute decompensated heart failure complicated by valvular heart disease Secondary Diagnoses/Problems: Angina Equivalent Aortic valve disease History of atrial fibrillation DM Type 2 History of atrial fibrillation HTN Hypothyroidism Dyslipidemia Procedures: [~ rep ct add3]] CHEST ONE VIEW PORTABLE CLINICAL HISTORY: Shortness of breath. Chest pain. COMPARISON STUDY: Chest radiograph November 18, 2015. FINDINGS: There is no pneumothorax or pleural effusion. Study is mildly compromised by suboptimal penetration. There is pulmonary vascular congestion with possible mild pulmonary edema. Moderate cardiomegaly is noted. A 4.2 cm right lower lobe mass is unchanged from earlier studies. Additional lower lobe nodules are unchanged. These were shown to represent partially calcified nodules and masses on CT of August 05, 2013. Prosthetic aortic valve is noted. IMPRESSION: 1. Pulmonary vascular congestion with suspected mild edema. 2. Moderate cardiomegaly. 3. No change in bilateral lower lung masses and nodules from study of October 02, 2010. These are likely benign. Electronically signed by: Ruben Holt M.D. 06/21/2017 4:06 PM Dictated Date/Time: 06/21/2017 4:03 PM Interpretation Summary * Transesophageal Echocardiogram Report * Name: PENNY JUAREZ Study Date: 06/24/2017 11:08 AM BP: 161/66 mmHg * Patient Location: [facility]\\S\\[id number]\\[id number]\\[id number] HR: 73 * : 1940 (M/d/yyyy) Gender: Female Height: 63 in * Age: 76 yrs Ethnicity: ID Weight: 193 lb * Ordering Physician: Adarsh Díaz * Referring Physician: Self, Referred * Performed By: Rukhsana Chan RCS * * Reason For Study: AVR Stenosis * BSA: 1.9 m2 * -- Conclusions -- * The left ventricle is normal in size. * There is moderate concentric left ventricular hypertrophy. * No regional wall motion abnormalities noted. * Ejection Fraction = 50-55%. * There is a valve within a valve bioprosthesis present with trace perivalvular bioprosthetic valve insufficiency. The prsothesis is small with leaflets thickened but mobile. There is intrinsic prosthetic stenosis * The aortic root and ascending aorta are small in caliber * Mild atherosclerotic plaque(s) in the descending aorta. Procedure Details * The transesophageal portion of this study was personally supervised by the undersigned interpreting physician. * GEOVANI Probe #2 utilized for procedure. * The study was performed in Cardiopulmonary Department. * Time out was conducted by the physician, nurse, and aviation electronics technician with positive identification of patient and procedure. * Informed consent for Transesophageal Echocardiogram was obtained prior to the procedure. * An intravenous line was placed. A topical anesthetic agent was used for oropharangeal anesthesia. A bite block was inserted. * The patient's vital signs, including blood pressure, heart rate, pulse oximetry and cardiac rhythm were monitored throughout the procedure . * Exam start time: 1129 Probe Insert time: 1134 Probe Out/ Finish time: 1152 * A multifrequency, multiplane transesopheageal echocardiographic endoscope was inserted and manipulated in the standard fashion to achieve multiplane views. * The transesophageal probe was passed without difficulty. * The usual views were obtained; basal, mid-esophageal, transgastric and aortic views. * The patient tolerated the procedure well without evidence of orophangeal or esophageal trauma. * A 2D transesophageal echocardiogram with spectral and color flow Doppler was performed. * Meperidine 25 mg administered for sedation. * Midazolam 4 mg administered for sedation. * The posterior oropharynx was anesthetized using a topical anesthetic spray. A bite guard was inserted. Left Ventricle * The left ventricle is normal in size. * There is moderate concentric left ventricular hypertrophy. * Ejection Fraction = 50-55%. * No regional wall motion abnormalities noted. Atria * The left atrium is moderately dilated. * No thrombus is detected in the left atrial appendage. * Right atrial size is normal. * The interatrial septum is intact with no evidence for an atrial septal defect. Mitral Valve * There is mild mitral annular calcification. * There is no mitral valve stenosis. * There is trace mitral regurgitation. Tricuspid Valve * The tricuspid valve anatomy is normal. Aortic Valve * There is a valve within a valve bioprosthesis present with trace perivalvular bioprosthetic valve insufficiency. The prsothesis is small with leaflets thickened but mobile. There is intrinsic prosthetic stenosis Pulmonic Valve * The pulmonic valve is normal in structure and function. Great Vessels * The aortic root and ascending aorta are small in caliber * Mild atherosclerotic plaque(s) in the descending aorta. Right Ventricle * The right ventricular wall motion is normal. Consultations: Cardiology Medication Reconciliation New Medications: Warfarin Sod (Coumadin) 7.5 Mg Tab 7.5 MG PO DAILY@16 for 30 Days, TAB Changed Medications: Carvedilol (Carvedilol) 25 Mg Tab 12.5 MG PO BID for 30 Days (Changed from: 25 MG) Furosemide (Furosemide) 40 Mg Tab 60 MG PO QAM for 30 Days (Changed from: 40 MG) Continued Medications: Aspirin (Aspirin Ec) 81 Mg Tab 81 MG PO DAILY Cholecalciferol (Vitamin D3) 1,000 Unit Tab 1000 INTER.UNIT PO DAILY Folic Acid (Folic Acid) 1 Mg Tab 1 MG PO DAILY Glimepiride (Glimepiride) 2 Mg Tab 2 MG PO QPM, 3 Refills TAKE ONE TABLET (2 MG) WITH EVENING MEAL Glimepiride (Glimepiride) 2 Mg Tab 4 MG PO QAM TAKE 2 TABLETS (4 MG) WITH BREAKFAST Levothyroxine Sodium (Levothyroxine Sodium) 50 Mcg Tab 50 MCG PO QAM Metformin HCl (Metformin HCl) 850 Mg Tab 850 MG PO BID Methotrexate (Methotrexate) 2.5 Mg Tab 15 MG PO WK TAKE 6 TABLETS BY MOUTH ONCE A WEEK ON TUESDAY Multivitamin (Multivitamin) Tab 1 TAB PO DAILY Nateglinide (Starlix) 60 Mg Tab 120 MG PO QAM TAKE 120 MG WITH BREAKFAST Nateglinide (Starlix) 60 Mg Tab 60 MG PO QPM, TAB TAKE 60 MG WITH EVENING MEAL Nitroglycerin (Nitrostat) 0.4 Mg Tab 0.4 MG UT UD PRN for Chest Pain Potassium Chloride (Potassium Chloride Er) 10 Meq Tab 10 MEQ PO DAILY, TAB Pravastatin Sodium (Pravastatin Sodium) 40 Mg Tab 40 MG PO HS Ranitidine HCl (Ranitidine HCl) 150 Mg Tab 150 MG PO BID Sitagliptin (Januvia) 100 Mg Tab 100 MG PO QAM Discontinued Medications: Lisinopril (Lisinopril) 10 Mg Tab 10 MG PO QAM Terazosin (Hytrin) 5 Mg Cap 5 MG PO HS Admission Information HPI (per Admitting provider): CHIEF COMPLAINT: Shortness of breath on exertion for 1 month, more shortness of breath and sweating and feeling unwell since this afternoon. HISTORY OF PRESENT COMPLAINT: She is a 76-year-old female with significant past medical history including atrial fibrillation, type 2 diabetes, heart failure due to valvular heart disease, rheumatoid arthritis, status post TAVR, apparently complaining of shortness of breath on exertion for about 1 month. She went to [employer] today and has had some physical exertion. Following that, she started to have more shortness of breath with chest tightness and sweating and also feeling of fainting or very unwell. From that point, she went home, the condition did not improve, then she was brought into the Emergency Room for further evaluation. She denies to have any chest pain, but she complained to have chest tightness. She did not have any numbness or tingling involving the left upper extremity or jaw or neck. In the ER, she did receive nitro and she was feeling a bit better following administration of oxygen as well. She denies to have any recent fever, any chills or rigors. She does not have any abdominal pain, any nausea or vomiting. She does not have any problem with urine and/or bowel habit. She does not have any fever, any cough or any phlegm. She denies to have any headache, any blurred vision, any numbness or tingling in the extremities or any weakness involving any side of the body. In the Emergency Room, she was hemodynamically stable, her pain was to some extent relieved, the investigation including EKG did show ST depression >1mm involving I and aVL and also V4, V5 and V6 and her troponin was 0.1. From that point, she was started on IV heparin and she was admitted to telemetry unit for continuation of care. Physical Exam (per Admitting): GENERAL: On examination in the Emergency Room, she was not having any acute pain or shortness of breath. VITAL SIGNS: Temperature 36.8, pulse was 70, blood pressure 133/72, saturation 94% on room air. HEENT: Unremarkable. NECK: Supple. No JVD, no bruit. CHEST: Decreased breath sounds at bases but no wheezing and/or crackles. HEART: S1, S2 regular, prosthetic valve sounds, questionable murmur 2/6 over precordium. ABDOMEN: Soft, benign, nontender, no organomegaly. Bowel sounds present. EXTREMITIES: Trace edema on the left. Otherwise, unremarkable. MUSCULOSKELETAL: Did not show any acute arthritis involving any joint. CENTRAL NERVOUS SYSTEM: She was alert, awake, oriented x3 and no focal sensory and/or motor deficit appreciated. Hospital Course Acute decompensated heart failure complicated by valvular heart disease. CXR on admission showed Mild CHF Received 60 mg Lasix on Admission Continue Lasix 60mg daily ( was on 40mg at home) Carvedilol decreased to 12.5 mg cardiology on board case discussed with cardiology and OK to discharge home today Follow up with cardiology in 2- 3 weeks Angina Equivalent Presented with SOB associated with Chest pressure Troponin trending down On heparin drip Asymptomatic currently Aortic valve disease S/P Bioprosthetic valve replacement in 2008 and followed by TAVR in 2013 Symptoms are contributing to valvular Heart disease Cardiology on board Check ECHO:: * There is severe concentric left ventricular hypertrophy. * Ejection Fraction = 55-60%. * Septal motion is consistent with post-operative state. * There is a bioprosthetic aortic valve. * The aortic bioprostesis is not well visualized. * Systolic gradients suggest moderate to severe stenosis. * There is trace bioprosthetic valve insufficiency. * There is severe mitral annular calcification. * There is mild mitral stenosis. * There is mild mitral regurgitation. * There is mild tricuspid regurgitation. * The estimated systolic PAP is 42mmHg. Diabetes type 2. hold metformin and Januvia and Starlix for now. on sliding scale coverage Blood sugar remains stable History of atrial fibrillation Not on any Anticoagulation Now in SR Continue Heparin drip Coumadin was starting INR 1.7 today Will give Coumadin 7.5 mg today check INR on Tuesday Hypertension. Blood pressure is well controlled at this time. Lisinopril and Terazosin stopped Hyperlipidemia Continue current medication. Hypothyroidism. Continue replacement. Gastrointestinal prophylaxis with proton pump inhibitor and ranitidine. Deep vein thrombosis prophylaxis On heparin drip Code status full code. Disposition Will discharge home today Total time spent on discharge = 35 minutes This includes examination of the patient, discharge planning, medication reconciliation, and communication with other providers. Discharge Instructions Discharge Instructions Date of Service Jun 30, 2017. Admission Reason for Admission: Unstable Angina Discharge Discharge Diagnosis / Problem: Acute decompensated heart failure complicated by valvular heart disease Discharge Goals Goal(s): Decrease discomfort, Improve function, Improve disease control Activity Recommendations Activity Limitations: resume your previous activity (as tolerated) . Instructions / Follow-Up Instructions / Follow-Up Follow up appointment with your primary care provider Dr. Mitchell on Jul 06 @1: 05 pm Follow up with your Cardiology Dr. Díaz in 2-3 weeks, The cardiology office will call you for the appointment Follow up with the coumadin clinic, the clinic will call you for the appointment Check INR on Tuesday, today INR 1.7 (Lab order given to patient) Continue Coumadin 7.5 mg for now until instructing to change the dose according the INR level Monitor Blood pressure Follow a low salt diet and limited fluid intake Fall precaution since you are on blood thinner to avoid any intracranial bleeding Terazosin and Lisinopril discontinued Lasix increased to 60mg daily Medication Instructions: * Warfarin is a medicine prescribed to prevent blood clots * Warfarin will thin your blood and help prevent new clots * Take your medications exactly as directed * Never skip a dose. Never take a double dose. If you miss a dose, take it as soon as you remember * It is important for your doctor to monitor your prothrombin time (PT). This is a lab test * Keep your appointment for lab tests Risk of Adverse Drug Reactions and Interactions: * Warfarin increases your risk of bleeding * The food you eat and other medications you take can affect how Warfarin works in your body * Ask your doctor about daily aspirin therapy * It is very important to talk with your doctor about all of the other medicines , antibiotics, vitamins or herbal products that you are taking * All of your medication must be approved by your doctor, including new medicines, as well as medicines you have taken before you started taking Warfarin Diet: * In order for Warfarin to work properly, it is important to keep your intake of Vitamin K as consistent as possible * You should avoid any sudden change in Vitamin K intake * Report any significant changes in your diet or weight to your doctor Call your Primary Care doctor if you experience any of the following: * Swelling or Pain in your leg * Sudden, continuous pain deep in a muscle * Pain that worsens when you are active or when you stand still for a long time * Chest Pain * Sudden Shortness of Breath * Rapid or pounding heart beat * Fainting * Dizziness * Cough with blood or bloody sputum * Sweating more than normal * Bruises * Heavy or uncontrolled bleeding * Blood in your urine, stool or vomit * Black or tarry stools Follow Up: It is important for you to keep your follow up appointments with your medical provider. Current Hospital Diet Patient's current hospital diet: Diabetes Type 2 Diet Discharge Diet Recommended Diet: Low Sodium Diet (2gm Na), Diabetes Type 2 Diet Pending Studies Studies pending at discharge: no Medical Emergencies . Who to Call and When: Medical Emergencies: If at any time you feel your situation is an emergency, please call 911 immediately. . Non-Emergent Contact Non-Emergency issues call your: Primary Care Provider Call Non-Emergent contact if: you have any medication questions . . "Provider Documentation" section prepared by Manny Schwartz. . VTE Core Measure Inpt VTE Proph given/why not?: Unfractionated heparin SQ, Warfarin (Coumadin) Additional Copies To Juan Manuel Sweet M.D.
--- NOTE | 2017-07-18 06:52 | EDITING REQUIRED CODING QUERY ---
CONGESTIVE HEART FAILURE To Promote full compliance with coding requirements relating to patient care, physician participation is requested in all cases of packer and carry out uncertainty. Please assist us with the following questions. A diagnosis of Congestive Heart Failure is documented in the patient's medical record. To accurately code this diagnosis and to compare patient severity, we ask that you specify the type of heart failure by placing an X within the parenthesis (x). SYSTOLIC HEART FAILURE ( ) Acute ( ) Chronic ( ) Acute on Chronic ( ) Rheumatic ( ) Unknown DIASTOLIC HEART FAILURE ( ) Acute ( ) Chronic ( x) Acute on Chronic ( ) Rheumatic ( ) Unknown COMBINED SYSTOLIC AND DIASTOLIC HEART FAILURE ( ) Acute ( ) Chronic ( ) Acute on Chronic ( ) Rheumatic ( ) Unknown Was the CHF Present On Admission? Please check the appropriate box: (x ) Present on Admission ( ) Not Present On Admission ( ) Clinically undetermined Thank you for your time, GERMAIN Harrison, RIBBER
== END 2017-06-30 15:15 | disposition home or self-care (01) | DRG 292 ==
LOC: C.EDB 14:58 → C.MED 17:48 → ENRESERV 18:15
PROVIDERS: ADMIT Internal Medicine; ATTEND Internal Medicine
DX: I11.0 Hypertensive heart disease with heart failure (principal); T82.857A Stenosis of other cardiac prosthetic devices, implants and grafts, initial encounter; Y71.2 Prosthetic and other implants, materials and accessory cardiovascular devices associated with adverse incidents; I50.33 Acute on chronic diastolic (congestive) heart failure; I27.2 Other secondary pulmonary hypertension; I35.0 Nonrheumatic aortic (valve) stenosis; I25.110 Atherosclerotic heart disease of native coronary artery with unstable angina pectoris; E11.9 Type 2 diabetes mellitus without complications; M06.9 Rheumatoid arthritis, unspecified; E78.5 Hyperlipidemia, unspecified; E03.9 Hypothyroidism, unspecified; M81.0 Age-related osteoporosis without current pathological fracture; E66.9 Obesity, unspecified; Z68.34 Body mass index [BMI] 34.0-34.9, adult; Z96.652 Presence of left artificial knee joint; Z96.641 Presence of right artificial hip joint; Z86.79 Personal history of other diseases of the circulatory system; Z87.891 Personal history of nicotine dependence; Z79.82 Long term (current) use of aspirin; Z79.84 Long term (current) use of oral hypoglycemic drugs; Z79.83 Long term (current) use of bisphosphonates